=== PATIENT | male | born 1980 | race Caucasian/White ===

== ENCOUNTER → 2020-09-28 13:38 | Outpatient (CLI) | payer OTHER, SELFPAY ==
--- NOTE | ~2020-09-28 | XR_ITS ---
[id number] DATE: 09/28/2020 14:02 INDICATION: Chest pain TECHNIQUE: PA chest. 3 views of left ribs. COMPARISON: None FINDINGS: No left rib fracture is detected. Normal heart size. No hilar or mediastinal enlargement. No pulmonary infiltrate or consolidation, p ulmonary vascular congestion or pleural effusion or pneumothorax. IMPRESSION: Negative Reviewed, dictated and finalized at Location A. 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
--- NOTE | ~2020-09-28 | XR_ITS ---
XR thoracic spine 3V DATE: 09/28/2020 14:02 INDICATION: Back pain, radiculopathy. TECHNIQUE: AP, lateral, swimmer views COMPARISON: None FINDINGS: Minimal levoscoliosis. No fracture or dislocation or bone destruction. The thoracic pedicle s are intact. No paraspinal soft tissue thickening. 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
== END ==
PROVIDERS: PCP Physician Assistant; Visit Provider Physician Assistant
DX: M54.14 Radiculopathy, thoracic region (principal)
CPT/HCPCS: 71101; 72072

== ENCOUNTER 2024-04-28 14:58 | Emergency (ER) | payer OTHER, SELFPAY ==
--- NOTE | ~2024-04-28 | XR_ITS ---
EXAMINATION: XR finger 5th RT min 2V DATE: 04/28/2024 15:39 INDICATION: Possible large wood splinter in the mid right fifth finger TECHNIQUE: Dorsal palmar, lateral and 2 oblique views of the right fifth digit were obtained COMPARISON: None FINDINGS: Bone alignment is normal. No fracture. Joint spaces are normal. No soft tissue gas or radiopaque or r adiolucent foreign bodies identified. IMPRESSION: 1. No osseous abnormality or radiopaque/radiolucent foreign bodies. Of note there is limited sensitiv ity on plain radiographs for organic material of similar density to the soft tissues. Reviewed, dictated and finalized at location A. IMPRESSION: 1. No osseous abnormality or radiopaque/radiolucent foreign bodies. Of note the re is limited sensitivity on plain radiographs for organic material of similar density to the soft tissues.
[2024-04-28 15:20] VITALS: BP 152/82; PULSE 86; RESP 16; TEMP 37.1; O2SAT 99
--- NOTE | 2024-04-28 16:14 | ED.GENADULT ---
HPI - General Adult General Chief complaint: Wound/Laceration Stated complaint: finger injury Source: patient Mode of arrival: ambulatory Limitations: no limitations History of Present Illness HPI narrative: Patient presents for evaluation of suspected foreign body in the 5th digit of the right hand. He indicates he was cutting some brush today and thinks a splinter went into the affected digit. His attempted to make a small incision in an attempt to remove it. That attempt was unsuccessful. He reports mild pain in the affected digit, without numerical rating or descriptive quality. He is left hand dominant. No loss of ROM or paresthesias. He is not diabetic. He does not smoke. Date of last tetanus unknown. Related Data Home Medications Medication Instructions Recorded Confirmed escitalopram oxalate 10 mg tablet 10 mg PO DAILY 04/28/24 04/28/24 valacyclovir 1 gram tablet 1,000 mg PO DAILY 04/28/24 04/28/24 Allergies Allergy/AdvReac Type Severity Reaction Status Date / Time No Known Allergies Allergy Verified 04/28/24 15:18 Review of Systems Review of Systems: CONSTITUTIONAL: Denies fever, chills, or sweats. EYES: Denies visual changes, redness, or discharge. ENT: Denies rhinorrhea, congestion, sore throat, or otalgia. CARDIOVASCULAR: Denies chest pain, palpitations, or edema. RESPIRATORY: Denies cough or dyspnea. GASTROINTESTINAL: Denies abdominal pain, nausea, vomiting, or diarrhea. GENITOURINARY: Denies dysuria or hematuria. SKIN: Reports abrasion to the fifth digit of the right hand with suspected retained foreign body MUSCULOSKELETAL: Reports pain in the 5th digit of the right hand NEUROLOGIC: Denies headache, numbness, dizziness, or weakness. PSYCHIATRIC: Denies anxiety or depression. [facility] Past Medical History Medical History Hyperlipidemia Surgical History Surgical History No pertinent past surgical history Family History Family History Mother Family history non-contributory Social History Social History Smoking status: Never smoker Substance use: never Living arrangements: with family Gender identity (if verbalized by the patient): Male Sexual Orientation (if Verbalized by the Patient): Straight or Heterosexual Spiritual care concerns: No Exam Narrative: GENERAL: Well-appearing, well-nourished, and in no acute distress. HEAD: Normocephalic, atraumatic. EYES: PERRLA and EOMI. ENT: Nares clear, no rhinorrhea or epistaxis. Mucous membranes moist. Oropharynx without tonsillar hypertrophy exudate or other lesions. Bilateral TMs pearly botello nonbulging NECK: Supple. No adenopathy or masses. No carotid bruits or JVD CHEST: Clear to auscultation. No respiratory distress. No wheezes rales or rhonchi HEART: Regular rate and rhythm. No murmur heard. Normal peripheral pulses. ABDOMEN: Soft, nontender, nondistended, normal active bowel sounds. EXTREMITIES: full range of motion of PIP and the IP joints of the 5th digit of the right hand. There is mild tenderness overlying the abrasion to the 5th digit of the right hand. SKIN: Approximately 1.5 cm linear abrasion noted to dorsolateral aspect of fifth digit of right hand NEURO: No focal deficits. Alert and oriented x3. PSYCH: Normal mood and affect. Course Course Emergency Course: This is a 43-year-old male who presented for evaluation of an abrasion to the 5th digit of the right hand with suspected retained foreign body. No radiopaque foreign body visualized on imaging. I do not visualize retained foreign body nor do I palpate. We clean the area and had him soak his digit and warm water. I reassessed it in there was still no visible or palpable retained foreign body. he wa
--- NOTE | 2024-04-28 16:42 | PC.NURSE ---
1630- switched pt to warm soapy water soak at present.
[2024-04-28] MEDS: TETANUS,DIPHTHERIA,AC PERTUSSIS ADULT (0.5 ML) BOOSTRIX IM (17:09)
--- NOTE | 2024-04-28 17:19 | PC.NURSE ---
1605- pt soaking in guaze soaked peroxide.
== END 2024-04-28 17:12 | disposition home or self-care (01) ==
PROVIDERS: Emergency Provider Nurse Practitioner; PCP Physician Assistant
DX: S60.416A Abrasion of right little finger, initial encounter (principal); X58.XXXA Exposure to other specified factors, initial encounter; Z23 Encounter for immunization; E78.5 Hyperlipidemia, unspecified
CPT/HCPCS: 73140; 90471; 90715; 99213; G0463

== ENCOUNTER 2024-12-28 01:11 | Day surgery (SDC) | payer OTHER, SELFPAY ==
[2024-12-13 09:53] VITALS: BMI 28.7
--- OUTSIDE RECORDS SUMMARY | 2024-12-28 01:13 | XMS_ITS ---
Care Plan - [facility] Created on: December 28, 2024 BUFFY GONZALES : 1980 Sex: Male Author Organization [facility] Address [address] [place] [id number] Phone Care Team Providers Care Exchange Teller Name Role Phone Unavailable Unavailable Unavailable
--- OUTSIDE RECORDS SUMMARY | 2024-12-28 01:13 | XMS_ITS | Clinical Summary ---
Author Organization [facility] Address [address] [place] [address] Phone Care Team Providers Care Women'S Apparel Salesperson Name Role Phone Unavailable Unavailable Unavailable Reason for Visit and Chief Complaint LAB Problems Includes: Problems addressed during this encounter and other active Problems All Visits Onset Date Resolved Date Provider Condition S tatus Secondary Insomnia 09/15/2018 SHAWNEE CANDELARIA D.O. Active Last Documented On 8 11:32AM ; [facility] Hypercholesterolemia 05/23/2017 SHAWNEE Waters D.O. Active Last Documented On 8 3:32PM ; [facility] Anxiety Disorder Nos 01/14/2017 SHAWNEE Waters D.O. Active Last Documented On 7 11:06AM ; [facility] Plan of Treatment No Plan of Treatment Recorded Assessments Includes: Assessments from this encounter No Assessments Recorded Medical Equipment - Implanted Devices Includes: Current Devices No Medical Equipment Recorded Medications Includes: Medications discussed during this encounter and other current Medications Current Medications (continue as prescribed) Atorvastatin Calcium 20 MG Oral Tablet 01/31/2020 Provider: SHAWNEE White Diagnosis: Pure hypercholes terolemia, unspecified TAKE 1 TABLET BY MOUTH EVERY NIGHT AT BEDTIME-Needs check up before further refill Last Documented On 01/31/2020 10:43AM By MIKE LOAIZA ; [facility] Mirtazapine 7.5MG Oral Tablet 12/04/2018 Provider: Diagnosis: Wendy Cramer Last Documented On 9 3:33PM By AME LOAIZA ; [facility] Medications Administered Includes: Administered Medications from this encounter No Administered Medications Recorded Results Includes: Results discussed during this encounter No Results Recorded For Specified Dates History of Present Illness Includes: History of Present Illness from this encounter No History of Present Illness Recorded Social History No Social History Recorded - Smoking Status Unknown Medical History Includes: Medical History addressed during this encounter No Medical History Recorded Family History Includes: Family History addressed during this encounter No Family History Recorded Review of Systems Includes: Review of Systems from this encounter No Review of Systems Recorded Mental Status Includes: Mental Status from this encounter No Mental Status Recorded Functional Status Includes: Functional Status from this encounter No Functional Status Recorded Physical Exam Includes: Physical Exam from this encounter No Physical Exam Recorded Allergies Includes: Active Allergies No Known Allergies Encounters Encounter Provider Location Date Check-In Time Check-Out Time Diagnosis LAB SHAWNEE CANDELARIA D.O. 06/02/2019 9:22AM 11:59PM Clinical Notes Includes: Clinical Notes from this encounter No Clinical Notes Recorded
--- OUTSIDE RECORDS SUMMARY | 2024-12-28 01:13 | XMS_ITS | Data Portability ---
Author Organization [facility] [employer], Main Office Address [address] [place] [address] Care Team Providers Care Slip Mixer Name Role Phone LIZZETH CALABRESE Primary Care Provider [phone] LIZZETH CALABRESE Referring Provider EDNA ROJO Gas Tester Unava ilable Assessment No assessment recorded. Plan of Treatment Reminders Order Date Submit Date Provider Last Modified By Organization Details Last Modified Time Details Appointments None record ed. Lab None record ed. Referral None record ed. Procedures None record ed. Surgeries None record ed. Imaging None record ed. Medication Orders None record ed. Patient TargetsNo targets recorded. Patient InstructionsNo instructions recorded. Reason for Referral None Reported. Results Created Date Observation Date Name Description Value Unit Range Abnormal Flag Note LastModifiedBy Organization Detail LastModifiedTime 09/10/20 22 XR, shoul edda, 2 or more view No observ ation record ed. [id number] [id number] [place] [address], [place], [address], 01/08/2023 21:35:29 Result Notes None recorded. 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 Not Available [facility] 3 21:34:41 Pain of left shoulder joint 7624797817556 9109 Active 2021 Not Available [facility] 3 21:34:41 Pain of right shoulder joint 3913143522740 9100 Active 2021 Not Available [facility] 3 21:34:41 Generalize d anxiety disorder 51039748 Active 2021 Not Available [facility] 3 21:34:42 Impingemen t syndrome of left shoulder region 2595292165368 04 Active 2021 Not Available [facility] 3 21:34:42 Lateral epicondyli tis of left humerus 5953300698998 00 Active 2021 Not Available [facility] 3 21:34:42 Anxiety 78036163 Active 2019 Not Available [facility] 3 21:34:42 Hyperlipid emia 20574940 Active 2019 Not Available [facility] 3 21:34:42 Rhinosinus itis 512095173 Active 2021 Not Available [facility] 3 21:34:42 Acute sinusitis 56517172 Active 2022 JOSEPHINE Junior [address] [facility], [facility] [address], [place], [address] , [facility] 3 13:33:44 Problem Notes None recorded. Procedures Surgical History None recorded. Imaging Results Imaging Date Name Status LastModified by Organiz ation Details LastModified Time 09/10/2022 XR, shoulder, 2 or more view completed [id number] [id number] [address], [place], [address], 01/08/2023 21:35:29 Procedure Notes None recorded. Medical Equipment None Reported. Allergies No known drug allergies Medications Name Sig Start Date Stop Date Status Note LastModified by Organization Details LastModified Time atorvastati n 20 mg tablet TAKE 1 TABLET BY MOUTH EVERY NIGHT AT BEDTIME active Not Available Not Available No t Available valacyclovi r 1 gram tablet TAKE 2 TABLETS BY MOUTH EVERY 12 HOURS FOR 1 DAY NEEDED active Not Available Not Available No t Available bupivacaine HCl 0.5 % (5 mg/mL) injection solution Take 2 mg by injection route. 08/07 completed Not Available Not Available Not Available prednisone 20 mg tablet TAKE 2 TABLETS BY MOUTH EVERY DAY FOR 5 DAYS active Not Available Not Available No t Available amoxicillin 875 mg tablet Take 1 tablet every 12 hours by oral route. active Not Available Not Available No t Available Kenalog 10 mg/mL suspension for injection In office injection administe red by the provider 08/06 completed [facility]: [id number] Not Available Not Available Not Available buspirone 10 mg tablet 12/13 completed Not Available Not Available Not Available mirtazapine 15 mg tablet TAKE 1 TABLET BY MOUTH EVERY NIGHT AT BEDTIME active Not Available Not Available No t Available amoxicillin 875 mg-potassiu m clavulanate 125 mg tablet TAKE 1 TABLET BY MOUTH EVERY 12 HOURS active Not Available Not Available No t Available escitalopra m 10 mg tablet TAKE 1 AND 1/2 TABLETS BY MOUTH EVERY DAY active Not Available Not Available No t Available mirtazapine 7.5 mg tablet TK 1 T PO QHS 09/26 completed Not Available Not Available Not Available Fluzone Quad (PF) 60 mcg (15 mcg x 4)/0.5 mL IM syringe active Not Available Not Available N ot Available Vitals Date Recorded Body mass index (BMI) Body mass index (BMI) Body mass index (BMI) Body mass index (BMI) Body height Body height Body height Body height Oxygen saturation Oxygen saturation in Arterial blood by Pulse oximetry Pain severity - 0-10 verbal numeric rating [Score] - Reported Pain severity - 0-10 verbal numeric rating [Score] - Reported Heart rate Respiratory rate Body temperature Body weight Body weight Body weight Body weight Systolic blood pressure Diastolic blood pressure Provider Name and Address Organization Details Last Updated DateTime 3 25.1 kg/m2 26.4 kg/m2 25.8 kg/m2 25.8 kg/m2 177.8 cm 177.8 cm 177.8 cm 177.8 cm 98 % 98 % 2 3 92 /min 16 /min 97.4 [degF] 69118.6 6 g 65318 g 77439.6 3 g 32231.6 3 g 120 mm[Hg] 80 mm[Hg] Not Available [facility] 3 21:34:30 Date Recorded Body height Body temperature Body mass index (BMI) Body weight Respiratory rate Oxygen saturation Oxygen saturation in Arterial blood by Pulse oximetry Heart rate Systolic blood pressure Diastolic blood pressure Provider Name and Address Organization Details Last Updated DateTime 3 177.8 cm 97.6 [degF] 28.1 kg/m2 41555.1 g 16 /min 98 % 98 % 62 /min 122 mm[Hg] 80 mm[Hg] FADIA Tubbs [place] [employer] [facility] 11:22:26 Social History Question Answer Notes LastModified by Organizat ion Details LastModified Time Tobacco Smoking Status Never Smoker FADIA Tubbs null, SARAH [place] [employer] [facility] 02/06/2023 11:17:37 Do You Have An Advance Directive? No [id number] Information not available 01/08/2023 What Is Your Level Of Alcohol Consumption? Moderate [id number] Information not available 01/08/2023 What Is Your Level Of Caffeine Consumption? Moderate [id number] Information not available 01/08/2023 In The 14 Days Before Symptom Onset, Have You Had Close Contact With A Laboratory-confirm ed COVID-19 While That Case Was Ill? No [email or web address] Information n ot available 02/06/2023 In The 14 Days Before Symptom Onset, Have You Had Close Contact With A Person Who Is Under Investigation For COVID-19 While That Person Was Ill? No [email or web address] Information not available 02/06/2023 Are You Currently Employed? Yes [email or web address] Information not available 02/06/2023 What Type Of Diet Are You Following? 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 No [email or web address] Information no t available 02/06/2023 Do You Use Insect Repellent Routinely? No [email or web address] Information not available 02/06/2023 Do You Have A Medical Power Of Access Control Officer? No [email or web address] Information not available 02/06/2023 What Was The Date Of Your Most Recent Tobacco Screening? 12/11/2021 [email or web address] Information not available 02/06/2023 What Is Your Relationship Status? [id number] Information not available 01/08/2023 Do You Use Your Seat Belt Or Car Seat Routinely? Yes [email or web address] Information not available 02/06/2023 Do You Have Smoke And Carbon Monoxide Detectors In Your Home? Yes [email or web address] Information not available 02/06/2023 Do You Use Any Illicit Or Recreational Drugs? No [email or web address] Information not available 02/06/2023 Do You Use Sunscreen Routinely? Yes [email or web address] Information not available 02/06/2023 Have You Recently Traveled Abroad? No [email or web address] Information not available 02/06/2023 Do You Have Any Dietary Restrictions? No [email or web address] Information not available 02/06/2023 Do You Or Have You Ever Used Any Other Forms Of Tobacco Or Nicotine? No [email or web address] Information not available 02/06/2023 Sex: Unknown Functional Status Question Answer Note LastModified by Organizat ion Details LastModified Time What is your exercise level? Moderate [id number] Information not available 01/08/2023 Mental Status None recorded. Family History Relationship Description Onset Age of this Age Resolved Age Notes LastModified by Organization Details LastModified Time Mother Hyperlipidem ia [id number] Not available 01/08/2023 21:34:08 Father Carcinoma of prostate [id number] Not available 01/08/2023 21:34:08 Maternal Grandmother Malignant tumor of pancreas [id number] [id number] Not available 01/08/2023 21:34:08 Maternal Grandfather Malignant neoplastic disease [id number] Not available 01/08/2023 21:34:08 Paternal Grandfather Congestive heart failure [id number] Not available 01/08/2023 21:34:08 Medical History Condition Response ANXIETY DISORDER Y HIGH CHOLESTEROL / HYPERLIPIDEMIA Y Immunizations Vaccine Type Date Status Note Provider Nam e and Address Organization Details Recorded Time Influenza, split virus, quadrivalent, preservative 9 completed Not Available [facility] 01/08/2023 21:35:22 Influenza, split virus, quadrivalent, PF 1 completed Not Available [facility] 01/08/2023 21:35:22 Past Encounters Encounter ID Performer Location Encounter Start Date Encounter Closed Date Diagnosis/Indication Diagnosis SNOMED-CT Code Diagnosis ICD10 Code Diagnosis Note [id number] [facility] [place] [address] [place] [address] 09/27/2021 00:00:00 10/09/2021 22:59:16 [id number] [facility] [address] [place] [address] 12/11/2021 00:00:00 12/11/2021 11:50:15 [id number] [facility] [address] [place] [address] 01/22/2022 00:00:00 01/22/2022 10:46:35 [id number] [facility] [address] [place] [address] 03/26/2022 00:00:00 03/26/2022 10:44:16 [id number] [facility] [address] [place] [address] 06/25/2022 00:00:00 06/25/2022 10:34:13 [id number] [facility] [address] [place] [address] 08/07/2022 00:00:00 08/07/2022 14:13:04 [id number] [facility] [address] [place] [address] 09/10/2022 00:00:00 09/10/2022 10:45:25 [id number] [facility] [address] [place] [address] 10/22/2022 00:00:00 10/22/2022 11:34:16 [id number] JOSEPHINE Junior [facility] [address] [place] [address] 02/06/2023 11:17:30 02/06/2023 11:46:09 Adult health examination 281395523 Z00.01 well exam completed. labs reviewed. very stable. Hyperlipidemia 09494173 E78.5 stable on low dose statin therapy . may f/u annually Generalize d anxiety disorder 54163958 F41.1 stable on lexapro 15mg daily. Long-term drug therapy 793746416 Z79.899 Health Concerns Section Related Observation LastModified by Organization Detai ls LastModified Time None Recorded Concern Status LastModified by Organization Details LastModified Time None Recorded Advance Directives Directive N: Payers Encounter Date Sequence Insurance Name Policy Number Policy Au Covered Member ID Au Member ID Guarantor Name 02/06/2023 1 [facility] [id number] Octavio Fulton [id number] Sabas Fulton Notes Date Note Type Note Provider Name and Address Organization Details Recorded Time 08/07/20 22 text/htm l Allergy/sinusitisReported bypatient.Onset/Timing:gradual onset; progressively worse over last 2months Location:post nasal drainage. clearing throat of mucous Severity:no pain Alleviating factors:pt has not tried anything Associated Symptoms:post nasal dripAnxiety/DepressionReported bypatient.Quality:symptoms improved Severity:denies suicidal ideations; able to maintain relationships; does not interfere with activities of daily living Duration:stablizing Onset/Timing:still present Context:no major life stressors Modifying Factors:medications as directed Associated Symptoms:denies homicidal ideations; no significant weight gain; no significant weight loss; no visual/auditory hallucinations; no delusions; no shortness of breath; mood good; no anxiety; no crying spells; no panic; no isolation; sleeping well; appetite good; energy good; no apathy; maintaining functionalityGeneric HPI TemplateReported bypatient.Location:Lt shoulder Quality:ache Severity:2/10 Duration:comes and goes Onset/Timing:years ago but getting worse in the last couple years. Context:thinks he hurt it lifting weights in his 20's. Aggravating factors:lifting arm above shoulder level Alleviating factors:havent tried anything for the pain.Notes:He seen Dr. Robison for his elbow and if he needs to see someone he did like them.HyperlipidemiaReported bypatient.Duration:chronic Control:usually well controlled Current Therapy:currently taking: (atorvastatin 20mg) Compliance:compliant; compliant with diet;does not exercise(but active) Complications:no coronary artery disease; no peripheral artery disease; no cardiovascular disease Not Available [facility] [employer] [facility] [employer] 08/07/2022 14:13:04 02/07/20 23 text/htm l Anxiety/DepressionReported bypatient.Quality:doesnt matter time of day. Severity:denies suicidal ideations; able to maintain relationships; does not interfere with activities of daily living Duration:symptoms lasting over 2 weeks Onset/Timing:still present Context:no major life stressors Modifying Factors:rx meds Associated Symptoms:denies homicidal ideations; no significant weight gain; no significant weight loss; no visual/auditory hallucinations; no delusions; no shortness of breathHyperlipidemiaReported bypatient.Duration:chronic Control:usually well controlled Current Therapy:currently taking: (atorvastatin 20mg) Compliance:compliant; compliant with diet; exercises;does not exercise Complications:no coronary artery disease; no peripheral artery disease; no cardiovascular disease Wellness JOSEPHINE Junior [address] [place] [address], [place] [address], [place], [address], [facility] 02/06/2023 11:45:06
--- OUTSIDE RECORDS SUMMARY | 2024-12-28 01:13 | XMS_ITS | Clinical Summary ---
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 HIS BUSPIRONE WAS DECREASED - The Chief Complaint is: Pt is here for a 3 month check up, discuss lab work, states there are no concerns today, says his Buspirone was decreased, Problems Includes: Problems addressed during this encounter and other active Problems Current Visit Onset Date Resolved Date Provider Conditio n Status Hypercholesterolemia 05/23/2017 SHAWNEE Waters D.O. Active Last Documented On 8 3:32PM ; [facility] Anxiety Disorder Nos 01/14/2017 SHAWNEE Waters D.O. Active Last Documented On 7 11:06AM ; [facility] Past Visits Onset Date Resolved Date Provider Condition Status Secondary Insomnia 09/15/2018 SHAWNEE CANDELARIA D.O. Active Last Documented On 8 11:32AM ; [facility] Plan of Treatment - Return to the clinic if condition worsens or new symptoms arise - Last Documented On 12/18/2018 7:42AM ; [facility] - Follow-up visit WILL GET LAB DONE TODAY, CAN CALL ON FRIDAY FOR RESULTS THEN DECIDE ON A PLAN. F/U IN 6 MONTHS - Last Documented On 12/18/2018 7:42AM ; [facility] - Patient to call if problem develops - Last Documented On 12/18/2018 7:42AM ; [facility] Instructions to patient Go to the emergency room if condition worsens Last Documented On 9 3:42PM ; [facility] Watch for signs/symptoms of infection Last Documented On 9 3:42PM ; [facility] Education and Decision Aids were provided during visit for: Education and counseling Last Documented On 9 3:40PM ; [facility] Assessments Includes: Assessments from this encounter Findings - [E78.00 - Pure hypercholesterolemia, unspecified] Hypercholesterolemia -LIVER ENZYMES SLIGHTLY ELEVATED ON LAB - Last Documented On 12/18/2018 7:42AM ; [facility] - [F41.9 - Anxiety disorder, unspecified] Anxiety disorder NOS -IS BETTER CONTROLLED - Last Documented On 12/18/2018 7:42AM ; [facility] Instructions Includes: Instructions from this encounter Instructions to patient Go to the emergency room if condition worsens Last Documented On 9 3:42PM ; [facility] Watch for signs/symptoms of infection Last Documented On 9 3:42PM ; [facility] Education and Decision Aids were provided during visit for: Education and counseling Last Documented On 9 3:40PM ; [facility] Medical Equipment - Implanted Devices Includes: Current Devices No Medical Equipment Recorded Medications Includes: Medications discussed during this encounter and other current Medications Discontinued / Stopped on this date SHAWNEE CANDELARIA D.O. on 09/15/2018 Ambien 10MG Oral Tablet Provider: KAYLEIGH CANDELARIA D.O. Diagnosis: Other insomnia Last Documented On 9 3:33PM By AME LOAIZA ; [facility] BusPIRone HCl 10MG Oral Tablet Provider: SHAWNEE CANDELARIA D.O. Diagnosis: Last Documented On 12/04/2018 3:43PM By MIKE LOAIZA ; [facility] Current Medications (continue as prescribed) Atorvastatin Calcium 20 MG Oral Tablet 01/31/2020 Provider: SHAWNEE White Diagnosis: Pure hypercholes terolemia, unspecified TAKE 1 TABLET BY MOUTH EVERY NIGHT AT BEDTIME-Needs check up before further refill Last Documented On 01/31/2020 10:43AM By MIKE LOAIZA ; [facility] Mirtazapine 7.5MG Oral Tablet 12/04/2018 Provider: Diagnosis: Wendy Cramer Last Documented On 9 3:33PM By AME LOAIZA ; [facility] Medications Administered Includes: Administered Medications from this encounter No Administered Medications Recorded Vital Signs Includes: Vital Signs from this encounter Vital Name 12/04/2018 03:25P Blood Pressure Sitting L 124/68 BP Cuff Size Regular Pulse Rate-Sitting (bpm) 76 Respiration Rate (breaths/min) 18 Temp-Oral (F) 97.3 Height (in) 70 Weight (lb) 159 Body Mass Index (kg/m2) 22.8 Body Surface Area (m2) 1.9 Last Documented: On 12/04/2018 3:35PM ; [facility] Results Includes: Results discussed during this encounter LIPID PANEL [facility] La boratory Ordered by SHAWNEE CANDELARIA D.O. on 12/16/[address] [place] [address], [place], [address] Collected: 12/01/2018 Report ed: 12/01/2018 11:02 tel: Last Documented On 9 3:28PM ; [facility] Reviewed by SHAWNEE CANDELARIA D.O. on 12/02/2018; All test results are final unless otherwise noted. CHOL/HDLC 2.6 (0.0 - 4.8) None Last Documented On 12/01/2018 3:28PM ; [facility] Note: Responsible Observer: (NOV) CHOLESTEROL 164 mg/dL (0 - 200) None Last Documented On 12/01/2018 3:28PM ; [facility] Note: Responsible Observer: (NOV) HDL 63 mg/dL (29 - 67) None Last Documented On 12/01/2018 3:28PM ; [facility] Note: Responsible Observer: (NOV) LDL 93 mg/dL (0 - 130) None Last Documented On 12/01/2018 3:28PM ; [facility] Note: Coronary Artery Risk Panel Reference Values Based on the recommendations of the Heart, Lung and Blood [place] (in mg/dL) Risk Levels = High Borderline Desirable Cholesterol >240 200 - 240 <200 LDL >160 130 - 159 <130 Cholesterol/HDL Ratio Male <= 4.88 Female <= 4.23Responsible Observer: (NOV) LIPID PANEL See Note None Last Documented On 12/01/2018 3:28PM ; [facility] Note: LIPID PANELResponsible Observer: (NOV) TRIGLYCERIDE 39 mg/dL (1 - 150) None Last Documented On 12/01/2018 3:28PM ; [facility] Note: Responsible Observer: (NOV) HEPATIC FUNCTION PANEL [facility] Laboratory Ordered by SHAWNEE CANDELARIA D.O. on 12/16/[address] [place] [address], [place], [address] Collected: 12/01/2018 Report ed: 12/01/2018 11:02 tel: Last Documented On 9 3:28PM ; [facility] Reviewed by SHAWNEE CANDELARIA D.O. on 12/02/2018; All test results are final unless otherwise noted. A/G RATIO 1.7 (1.1 - 2.2) None Last Documented On 9 3:28PM ; [facility] Note: Responsible Observer: (NOV) ALBUMIN 4.7 g/dL (3.5 - 5.0) None Last Documented On 9 3:28PM ; [facility] Note: Responsible Observer: (NOV) ALK PHOS 49 IU/L (40 - 150) None Last Documented On 9 3:28PM ; [facility] Note: Responsible Observer: (NOV) ALT (SGPT) 44 IU/L (1 - 55) None Last Documented On 9 3:28PM ; [facility] Note: Responsible Observer: (NOV) AST (SGOT) 38 IU/L (5 - 34) H (High) Last Documented On 9 3:28PM ; [facility] Note: Responsible Observer: (NOV) BILI DIRECT 0.3 mg/dl (0.0 - 0.4) None Last Documented On 9 3:28PM ; [facility] Note: Responsible Observer: (NOV) BILI INDIRECT 0.4 mg/dl (0.0 - 1.1) None Last Documented On 9 3:28PM ; [facility] Note: Responsible Observer: (NOV) BILIRUBIN TOT 0.7 mg/dL (0.2 - 1.0) None Last Documented On 9 3:28PM ; [facility] Note: Responsible Observer: (NOV) GLOBULIN 2.7 g/dl (2.0 - 4.2) None Last Documented On 9 3:28PM ; [facility] Note: Responsible Observer: (NOV) HEPATIC FUNCTION PANEL See Note None Last Documented On 9 3:28PM ; [facility] Note: HEPATIC FUNCTION PANEL A (LIVER PROFILE)Responsible Observer: (NOV) TOTAL PROTEIN 7.4 g/dL (6.4 - 8.3) None Last Documented On 9 3:28PM ; [facility] Note: Responsible Observer: (NOV) History of Present Illness Includes: History of Present Illness from this encounter HPI BUFFY GONZALES is a 37 year old male. Anxiety. - Medication list reviewed. - No systemic symptoms. - No cardiovascular symptoms. - No pulmonary symptoms. Social History Description Last Updated Smoking status : Never smoker 03/08/2015 Last Documented On 9 3:25PM ; [facility] Abnormal diet HEALTHY 01/18/2013 Last Documented On 9 3:25PM ; [facility] Alcohol 6 BEERS PER WEEK 01/18/2013 Last Documented On 9 3:25PM ; [facility] Exercise frequency 4 TIMES PER WEEK 01/08 Last Documented On 9 3:25PM ; [facility] No tobacco use 01/18/2013 Last Documented On 9 3:25PM ; [facility] Non-smoker 01/18/2013 Last Documented On 9 3:25PM ; [facility] Not using drugs 01/18/2013 Last Documented On 9 3:25PM ; [facility] Occupation [employer] 01/18/2013 Last Documented On 9 3:25PM ; [facility] Single 01/18/2013 Last Documented On 9 3:25PM ; [facility] Procedures and Surgical History Includes: Procedures from this encounter Procedures Code Diagnosis Performing Provider Service L ocation Service Date watch for signs/symptoms of infection Last Documented On 9 3:42PM ; [facility] plan of care reviewed and agreed to Last Documented On 9 3:42PM ; [facility] Clinical summary provided to patient Last Documented On 9 3:40PM ; [facility] Medical History Includes: Medical History addressed during this encounter Description Last Updated History of hyperlipidemia 06/06/2018 Last Documented On 9 3:25PM ; [facility] Past medical/surgical history [use for f ree text] 06/06/2018 Last Documented On 9 3:25PM ; [facility] Family History Includes: Family History addressed during this encounter Description Last Updated Family history reviewed - [facility] last visit 12/06/2016 Last Documented On 9 3:25PM ; [facility] Maternal history of hyperlipidemia 06/05 Last Documented On 9 3:25PM ; [facility] Paternal history of cancer 06/05/2016 Last Documented On 9 3:25PM ; [facility] Maternal grandfather's history of jerez ry artery disease IN 40'S OR 50'S 03/08/2015 Last Documented On 9 3:25PM ; [facility] Maternal grandfather is LUNG CA NCER- ASBESTOS 04/27/2009 Last Documented On 9 3:25PM ; [facility] Maternal grandmother is PANCREA TIC AND COLON CANCER 04/27/2009 Last Documented On 9 3:25PM ; [facility] Mother LOW BLOOD PRESSURE 04/27/2009 Last Documented On 9 3:25PM ; [facility] Paternal grandmother is TERMINA L BRONCHITIS 04/27/2009 Last Documented On 9 3:25PM ; [facility] Paternal grandfather is not HEA RT FAILURE 04/27/2009 Last Documented On 9 3:25PM ; [facility] Review of Systems Includes: Review of Systems from this encounter Systemic: Not feeling poorly (malaise). No edema. Head: No headache. Cardiovascular: No chest pain or discomfort. Pulmonary: No dyspnea and not expressed as feeling short of breath. Neurological: No dizziness. Psychological: Anxiety. Mental Status Includes: Mental Status from this encounter Description Anxiety Functional Status Includes: Functional Status from this encounter No Functional Status Recorded Physical Exam Includes: Physical Exam from this encounter Allergies Includes: Active Allergies No Known Allergies Encounters Encounter Provider Location Date Check-In Time Check-Out Time Diagnosis 3 MONTH CHECK SHAWNEE CANDELARIA D.O[facility] 12/04/19 19 3:22PM 3:53PM Anxiety Disorder Nos,Hypercho lesterolemia Clinical Notes Includes: Clinical Notes from this encounter No Clinical Notes Recorded
--- OUTSIDE RECORDS SUMMARY | 2024-12-28 01:14 | XMS_ITS ---
Author Organization [facility] Address [address] [place] [address] Phone Care Team Providers Care Planer Feeder Name Role Phone Unavailable Unavailable Unavailable Problems Includes: Active, inactive, and resolved Problems All Visits Onset Date Resolved Date Provider Condition S tatus Secondary Insomnia 09/15/2018 SHAWNEE Carolina HDZCER D.O. Active Last Documented On 8 11:32AM ; [facility] Hypercholesterolemia 05/23/2017 SHAWNEE Carolina HDZCE R D.O. Active Last Documented On 8 3:32PM ; [facility] Anxiety Disorder Nos 01/14/2017 SHAWNEE Carolina CRANCE R D.O. Active Last Documented On 7 11:06AM ; [facility] Plan of Treatment Findings Encounter Date Will give diet for irritable bowel PROBL EM VISIT with SHAWNEE A CRANCER D.O. 08/11/2019 Last Documented On 9 9:24AM ; [facility] Ordered patient to call if p roblem develops PROBLEM VISIT with SHAWNEE A CRANCER D.O. 08/11/2019 Last Documented On 9 9:24AM ; [facility] Ordered return to the clinic if condition worsens or new symptoms arise PROBLEM VISIT with SHAWNEE A CRANCER D.O. 08/11/2019 Last Documented On 9 9:24AM ; [facility] Ordered patient to call if p roblem develops 6 MONTH CHECK with SHAWNEE A CRANCER D.O. 06/08/2019 Last Documented On 9 12:40PM ; [facility] Ordered return to the clinic if condition worsens or new symptoms arise 6 MONTH CHECK with SHAWNEE A CRANCER D.O. 06/08/2019 Last Documented On 9 12:40PM ; [facility] Ordered follow-up visit WILL GET LAB DONE TODAY, CAN CALL ON FRIDAY FOR RESULTS THEN DECIDE ON A PLAN. F/U IN 6 MONTHS 3 MONTH CHECK with SHAWNEE A CRANCER D.O. 12/04/2018 Last Documented On 9 7:42AM ; [facility] Ordered patient to call if p gunjanlem develops 3 MONTH CHECK with SHAWNEE A CRANCER D.O. 12/04/2018 Last Documented On 9 7:42AM ; [facility] Ordered return to the clinic if condition worsens or new symptoms arise 3 MONTH CHECK with SHAWNEE A CRANCER D.O. 12/04/2018 Last Documented On 9 7:42AM ; [facility] Patient is to keep appt with the Psychiatrist but to try to find a counselor in the meantime MED CHECK with SHAWNEE A CRANCER D.O. 09/15/2018 Last Documented On 8 11:09AM ; [facility] Ordered follow-up visit will get lab today and f/u appt in 1 week MED CHECK with SHAWNEE A CRANCER D.O. 09/15/2018 Last Documented On 8 11:09AM ; [facility] Ordered patient to call if p dustinm develops MED CHECK with SHAWNEE A CRANCER D.O. 09/15/2018 Last Documented On 8 11:09AM ; [facility] Ordered return to the clinic if condition worsens or new symptoms arise MED CHECK with SHAWNEE A CRANCER D.O. 09/15/2018 Last Documented On 8 11:09AM ; [facility] Ordered follow-up visit 3 weeks MED CHECK with L BRANDON A CRANCER D.O. 09/11/2018 Last Documented On 8 9:13AM ; [facility] Ordered patient to call if p gunjanlem develops MED CHECK with SHAWNEE A CRANCER D.O. 09/11/2018 Last Documented On 8 9:13AM ; [facility] Ordered return to the clinic if condition worsens or new symptoms arise MED CHECK with SHAWNEE A CRANCER D.O. 09/11/2018 Last Documented On 8 9:13AM ; [facility] Ordered follow-up visit 6 mo nths with fasting lab before 6 MONTH CHECK with SHAWNEE A CRANCER D.O. 06/03/2018 Last Documented On 8 9:44PM ; [facility] Ordered patient to call if p roblem develops 6 MONTH CHECK with SHAWNEE A CRANCER D.O. 06/03/2018 Last Documented On 8 9:44PM ; [facility] Ordered return to the clinic if condition worsens or new symptoms arise 6 MONTH CHECK with SHAWNEE A CRANCER D.O. 06/03/2018 Last Documented On 8 9:44PM ; [facility] Ordered follow-up visit 6 mo nths with fasting lab before 6 MONTH CHECK with SHAWNEE A CRANCER D.O. 11/26/2017 Last Documented On 8 5:58PM ; [facility] Ordered patient to call if p roblem develops 6 MONTH CHECK with SHAWNEE A CRANCER D.O. 11/26/2017 Last Documented On 8 5:58PM ; [facility] Ordered return to the clinic if condition worsens or new symptoms arise 6 MONTH CHECK with SHAWNEE A CRANCER D.O. 11/26/2017 Last Documented On 8 5:58PM ; [facility] Ordered follow-up visit 6 mo nths with fasting labs before 6 MONTH CHECK with SHAWNEE A CRANCER D.O. 05/23/2017 Last Documented On 7 10:48AM ; [facility] Ordered patient to call if p roblem develops 6 MONTH CHECK with SHAWNEE A CRANCER D.O. 05/23/2017 Last Documented On 7 10:48AM ; [facility] Ordered return to the clinic if condition worsens or new symptoms arise 6 MONTH CHECK with SHAWNEE A CRANCER D.O. 05/23/2017 Last Documented On 7 10:48AM ; [facility] Ordered patient to call if p roblem develops PROBLEM VISIT with SHAWNEE A CRANCER D.O. 04/14/2017 Last Documented On 7 9:39PM ; [facility] Ordered return to the clinic if condition worsens or new symptoms arise PROBLEM VISIT with SHAWNEE A CRANCER D.O. 04/14/2017 Last Documented On 7 9:39PM ; [facility] Is to call back if he feels he cannot tolerate the Buspar 1 MONTH CHECK with SHAWNEE A CRANCER D.O. 02/27/2017 Last Documented On 7 8:39AM ; [facility] Ordered patient to call if p roblem develops 1 MONTH CHECK with SHAWNEE A CRANCER D.O. 02/27/2017 Last Documented On 7 8:39AM ; [facility] Ordered return to the clinic if condition worsens or new symptoms arise 1 MONTH CHECK with SHAWNEE A CRANCER D.O. 02/27/2017 Last Documented On 7 8:39AM ; [facility] Ordered follow-up visit 1 mo [facility] for medication check up 2 WK CK-UP with SHAWNEE A CRANCER D.O. 01/29/2017 Last Documented On 7 6:35PM ; [facility] Ordered patient to call if p roblem develops 2 WK CK-UP with SHAWNEE A CRANCER D.O. 01/29/2017 Last Documented On 7 6:35PM ; [facility] Ordered return to the clinic if condition worsens or new symptoms arise 2 WK CK-UP with SHAWNEE A CRANCER D.O. 01/29/2017 Last Documented On 7 6:35PM ; [facility] Ordered follow-up visit 2 we eks-med check MED CHECK with SHAWNEE A CRANCER D.O. 01/14/2017 Last Documented On 7 9:28AM ; [facility] Ordered patient to call if p roblem develops MED CHECK with SHAWNEE A CRANCER D.O. 01/14/2017 Last Documented On 7 9:28AM ; [facility] Ordered return to the clinic if condition worsens or new symptoms arise MED CHECK with SHAWNEE A CRANCER D.O. 01/14/2017 Last Documented On 7 9:28AM ; [facility] Ordered patient to call if p roblem develops 6 MONTH CHECK with SHAWNEESKAGGSCER D.O. 12/06/2016 Last Documented On 7 4:02PM ; [facility] Ordered return to the clinic if condition worsens or new symptoms arise 6 MONTH CHECK with SHAWNEE A CRANCER D.O. 12/06/2016 Last Documented On 7 4:02PM ; [facility] Ordered follow-up visit 3 MONTH CHECK with HOLLEY CANDELARIA D.O. 03/08/2015 Last Documented On 5 3:14PM ; [facility] Ordered a lipid test panel 3 MONTH CHECK with JEFFREY CANDELARIA D.O. 12/01/2014 Last Documented On 5 2:30PM ; [facility] Ordered follow-up visit FOLL OW UP IN 3 MONTHS WITH FASTING LAB BEFORE 3 MONTH CHECK with SHAWNEE CANDELARIA D.O. 12/01/2014 Last Documented On 5 2:30PM ; [facility] Ordered Clinical summary pro vided to patient 1 MONTH CHECK with SHAWNEE HDZCER D.O. 01/18/2013 Last Documented On 3 11:42AM ; [facility] Ordered Clinical summary pro vided to patient 1 WK CK-UP with SHAWNEESKAGGSCER D.O. 12/21/2012 Last Documented On 3 6:02PM ; [facility] Ordered Clinical summary pro vided to patient PROBLEM VISIT with SHAWNEE A CRANCER D.O. 12/14/2012 Last Documented On 3 6:11PM ; [facility] Instructions to patient Go to the emergency room if condition worsens Last Documented On 9 8:36AM ; [facility] Watch for signs/symptoms of infection Last Documented On 9 8:36AM ; [facility] Go to the emergency room if condition worsens Last Documented On 9 9:06AM ; [facility] Watch for signs/symptoms of infection Last Documented On 9 9:06AM ; [facility] Recommend diet and exercise at least 30 min three times per week Last Documented On 9 9:06AM ; [facility] Go to the emergency room if condition worsens Last Documented On 9 3:42PM ; [facility] Watch for signs/symptoms of infection Last Documented On 9 3:42PM ; [facility] Go to the emergency room if condition worsens Last Documented On 8 11:30AM ; [facility] Watch for signs/symptoms of infection Last Documented On 8 11:30AM ; [facility] Go to the emergency room if condition worsens Last Documented On 8 2:00PM ; [facility] Watch for signs/symptoms of infection Last Documented On 8 2:00PM ; [facility] Recommend diet and exercise at least 30 min three times per week -Can help with stress Last Documented On 8 2:07PM ; [facility] Go to the emergency room if condition worsens Last Documented On 8 3:51PM ; [facility] Watch for signs/symptoms of infection Last Documented On 8 3:51PM ; [facility] Recommend diet and exercise at least 30 min three times per week Last Documented On 8 3:51PM ; [facility] Watch for signs/symptoms of infection Last Documented On 8 3:38PM ; [facility] Recommend diet and exercise at least 30 min three times per week Last Documented On 8 3:37PM ; [facility] Go to the emergency room if condition worsens Last Documented On 7 3:18PM ; [facility] Go to the emergency room if condition worsens Last Documented On 7 3:13PM ; [facility] Go to the emergency room if condition worsens Last Documented On 7 9:28AM ; [facility] Recommend diet and exercise at least 30 min three times per week Last Documented On 7 11:07AM ; [facility] Recommend diet and exercise at least 30 min three times per week Last Documented On 7 3:22PM ; [facility] Recommend diet and exercise at least 30 min three times per week Last Documented On 6 3:26PM ; [facility] Recommend diet and exercise at least 30 min three times per week Last Documented On 5 3:09PM ; [facility] Education and Decision Aids were provided during visit for: Education and counseling Last Documented On 9 8:33AM ; [facility] Education and counseling Last Documented On 9 9:04AM ; [facility] Patient education about a pr oper diet Last Documented On 9 9:06AM ; [facility] Education and counseling Last Documented On 9 3:40PM ; [facility] Education and counseling Last Documented On 8 11:20AM ; [facility] Patient education about a pr oper diet Last Documented On 8 3:51PM ; [facility] Patient education about a pr oper diet -Healthy diet encouraged Last Documented On 8 3:37PM ; [facility] Patient education about a pr oper diet -Healthy diet encouraged Last Documented On 7 11:07AM ; [facility] Patient education about a pr oper diet -Healthy diet is encouraged Last Documented On 7 3:22PM ; [facility] Assessments Includes: Assessments for all patient encounters Findings Encounter Date [R10.12 - Left upper quadran t pain] Abdominal Pain--LUQ -intermittent, no pain today-Will give diet sheet for IBS PROBLEM VISIT with SHAWNEE CANDELARIA D.O. 08/11/2019 Last Documented On 9 9:24AM ; [facility] Anxiety disorder NOS PROBLEM VISIT with SHAWNEE CANDELARIA D.O. 08/11/2019 Last Documented On 9 9:24AM ; [facility] Anxiety disorder NOS 6 MONTH CHECK with SHAWNEENOEL D.O. 06/08/2019 Last Documented On 9 12:40PM ; [facility] Hypercholesterolemia 6 MONTH CHECK with SHAWNEE A ANDREINACER D.O. 06/08/2019 Last Documented On 9 12:40PM ; [facility] [E78.00 - Pure hypercholeste rolemia, unspecified] hypercholesterolemia -LIVER ENZYMES SLIGHTLY ELEVATED ON LAB 3 MONTH CHECK with SHAWNEE CANDELARIA D.O. 12/04/2018 Last Documented On 9 7:42AM ; [facility] [F41.9 - Anxiety disorder, u nspecified] anxiety disorder NOS -IS BETTER CONTROLLED 3 MONTH CHECK with SHAWNEE A CRANCER D.O. 12/04/2018 Last Documented On 9 7:42AM ; [facility] Anxiety disorder NOS MED CHECK with SHAWNEE A CLINICAL RESEARCH ASSOCIATE NCER D.O. 09/15/2018 Last Documented On 8 11:09AM ; [facility] Secondary insomnia MED CHECK with SHAWNEE A CRANC ER D.O. 09/15/2018 Last Documented On 8 11:09AM ; [facility] Anxiety disorder NOS MED CHECK with SHAWNEE A CLINICAL RESEARCH ASSOCIATE NCER D.O. 09/11/2018 Last Documented On 8 9:13AM ; [facility] Anxiety disorder NOS 6 MONTH CHECK with SHAWNEE A CRANCER D.O. 06/03/2018 Last Documented On 8 9:44PM ; [facility] Hypercholesterolemia 6 MONTH CHECK with SHWANEE A CRANCER D.O. 06/03/2018 Last Documented On 8 9:44PM ; [facility] Anxiety disorder NOS 6 MONTH CHECK with SHAWNEE A CRANCER D.O. 11/26/2017 Last Documented On 8 5:58PM ; [facility] Hypercholesterolemia 6 MONTH CHECK with SHWANEE A CRANCER D.O. 11/26/2017 Last Documented On 8 5:58PM ; [facility] Anxiety disorder NOS -stable 6 MONTH CHECK with SHAWNEE A CRANCER D.O. 05/23/2017 Last Documented On 7 10:48AM ; [facility] Pure hypercholesterolemia well controlle d 6 MONTH CHECK with SHAWNEE A CRANCER D.O. 05/23/2017 Last Documented On 7 10:48AM ; [facility] Lymphadenitis PROBLEM VISIT with SHAWNEE A CRAN CER D.O. 04/14/2017 Last Documented On 7 9:39PM ; [facility] Anxiety disorder NOS 1 MONTH CHECK with SHAWNEE A CRANCER D.O. 02/27/2017 Last Documented On 7 8:39AM ; [facility] Pure hypercholesterolemia 1 MONTH CHECK with LES TER A CRANCER D.O. 02/27/2017 Last Documented On 7 8:39AM ; [facility] Anxiety disorder NOS 2 WK CK-UP with SHANWEE A CR ANCER D.O. 01/29/2017 Last Documented On 7 6:35PM ; [facility] Pure hypercholesterolemia 2 WK CK-UP with SHAWNEE A CRANCER D.O. 01/29/2017 Last Documented On 7 6:35PM ; [facility] Anxiety disorder NOS MED CHECK with SHAWNEE A CLINICAL RESEARCH ASSOCIATE NCER D.O. 01/14/2017 Last Documented On 7 9:28AM ; [facility] Pure hypercholesterolemia MED CHECK with SHAWNEE A CRANCER D.O. 01/14/2017 Last Documented On 7 9:28AM ; [facility] Pure hypercholesterolemia 6 MONTH CHECK with LES TER A CRANCER D.O. 12/06/2016 Last Documented On 7 4:02PM ; [facility] Abdominal pain 6 MONTH CHECK with SHAWNEE A CRAN CER D.O. 06/05/2016 Last Documented On 6 4:08PM ; [facility] Normal routine history and physical 6 MO NTH CHECK with SHAWNEE A CRANCER D.O. 06/05/2016 Last Documented On 6 4:08PM ; [facility] Pure hypercholesterolemia 6 MONTH CHECK with LES TER A CRANCER D.O. 06/05/2016 Last Documented On 6 4:08PM ; [facility] Hypercholesterolemia 6 MONTH CHECK with SHAWNEE A CRANCER D.O. 12/06/2015 Last Documented On 6 6:00PM ; [facility] Hypercholesterolemia which i s well-controlled 3 MONTH CHECK with SHAWNEE A CRANCER D.O. 06/07/2015 Last Documented On 5 12:29PM ; [facility] Hypercholesterolemia 3 MONTH CHECK with SHAWNEE A CRANCER D.O. 03/08/2015 Last Documented On 5 3:14PM ; [facility] Normal routine history and physical 3 MO NTH CHECK with SHAWNEE A CRANCER D.O. 12/01/2014 Last Documented On 5 2:30PM ; [facility] Normal routine history and p hysical adult 3 MONTH CHECK with SHAWNEE A CRANCER D.O. 12/01/2014 Last Documented On 5 2:30PM ; [facility] Hypercholesterolemia 1 YR CHECK-UP with SHAWNEE A CRANCER D.O. 09/01/2014 Last Documented On 4 5:29PM ; [facility] MONTH CHECK with SHAWNEE A CRANCER D.O. 01/18/2013 Last Documented On 3 11:42AM ; [facility] Chest pain THIS IS LIKELY CA USED BY THE REFLUX 1 WK CK-UP with SHAWNEE A CRANCER D.O. 12/21/2012 Last Documented On 3 6:02PM ; [facility] Chronic reflux esophagitis 1 WK CK-UP with LESTE R A CRANCER D.O. 12/21/2012 Last Documented On 3 6:02PM ; [facility] Chest pain PROBLEM VISIT with SHAWNEE A CRAN CER D.O. 12/14/2012 Last Documented On 3 6:11PM ; [facility] Chronic reflux esophagitis PROBLEM VISIT with LE STER A CRANCER D.O. 12/14/2012 Last Documented On 3 6:11PM ; [facility] Normal routine history and p hysical THE PT IS TO BE GIVEN A DPT INJECTION SINCE HIS IS INJECTION with SHAWNEE A CRANCER D.O. 08/28/2011 Last Documented On 1 7:43PM ; [facility] Instructions Includes: Instructions for all patient encounters Instructions to patient Go to the emergency room if condition worsens Last Documented On 9 8:36AM ; [facility] Watch for signs/symptoms of infection Last Documented On 9 8:36AM ; [facility] Go to the emergency room if condition worsens Last Documented On 9 9:06AM ; [facility] Watch for signs/symptoms of infection Last Documented On 9 9:06AM ; [facility] Recommend diet and exercise at least 30 min three times per week Last Documented On 9 9:06AM ; [facility] Go to the emergency room if condition worsens Last Documented On 9 3:42PM ; [facility] Watch for signs/symptoms of infection Last Documented On 9 3:42PM ; [facility] Go to the emergency room if condition worsens Last Documented On 8 11:30AM ; [facility] Watch for signs/symptoms of infection Last Documented On 8 11:30AM ; [facility] Go to the emergency room if condition worsens Last Documented On 8 2:00PM ; [facility] Watch for signs/symptoms of infection Last Documented On 8 2:00PM ; [facility] Recommend diet and exercise at least 30 min three times per week -Can help with stress Last Documented On 8 2:07PM ; [facility] Go to the emergency room if condition worsens Last Documented On 8 3:51PM ; [facility] Watch for signs/symptoms of infection Last Documented On 8 3:51PM ; [facility] Recommend diet and exercise at least 30 min three times per week Last Documented On 8 3:51PM ; [facility] Watch for signs/symptoms of infection Last Documented On 8 3:38PM ; [facility] Recommend diet and exercise at least 30 min three times per week Last Documented On 8 3:37PM ; [facility] Go to the emergency room if condition worsens Last Documented On 7 3:18PM ; [facility] Go to the emergency room if condition worsens Last Documented On 7 3:13PM ; [facility] Go to the emergency room if condition worsens Last Documented On 7 9:28AM ; [facility] Recommend diet and exercise at least 30 min three times per week Last Documented On 7 11:07AM ; [facility] Recommend diet and exercise at least 30 min three times per week Last Documented On 7 3:22PM ; [facility] Recommend diet and exercise at least 30 min three times per week Last Documented On 6 3:26PM ; [facility] Recommend diet and exercise at least 30 min three times per week Last Documented On 5 3:09PM ; [facility] Education and Decision Aids were provided during visit for: Education and counseling Last Documented On 9 8:33AM ; [facility] Education and counseling Last Documented On 9 9:04AM ; [facility] Patient education about a pr oper diet Last Documented On 9 9:06AM ; [facility] Education and counseling Last Documented On 9 3:40PM ; [facility] Education and counseling Last Documented On 8 11:20AM ; [facility] Patient education about a pr oper diet Last Documented On 8 3:51PM ; [facility] Patient education about a pr oper diet -Healthy diet encouraged Last Documented On 8 3:37PM ; [facility] Patient education about a pr oper diet -Healthy diet encouraged Last Documented On 7 11:07AM ; [facility] Patient education about a pr oper diet -Healthy diet is encouraged Last Documented On 7 3:22PM ; [facility] Medical Equipment - Implanted Devices Includes: Current and historical Devices No Medical Equipment Recorded Medications Includes: Current and historical Medications Current Medications (continue as prescribed) Atorvastatin Calcium 20 MG Oral Tablet 01/31/2020 Provider: SHAWNEE White Diagnosis: Pure hypercholes terolemia, unspecified TAKE 1 TABLET BY MOUTH EVERY NIGHT AT BEDTIME-Needs check up before further refill Last Documented On 01/31/2020 10:43AM By MIKE LOAIZA ; [facility] Mirtazapine 7.5MG Oral Tablet 12/04/2018 Provider: Diagnosis: Wendy Digby Last Documented On 9 3:33PM By AME LOAIZA ; [facility] Past Medications on file Atorvastatin Calcium 20 MG Oral Tablet 01/03/2020 - 01/31/2020 Provider: SHAWNEE CANDELARIA D.O. Diagnosis: Pure hypercholesterolemia, unspecified TAKE 1 TABLET BY MOUTH EVERY NIGHT AT BEDTIME PATIENT NEEDS APPOINTMENT BEFORE FUTURE REFILLS. Last Documented On 01/31/2020 10:33AM By MIKE LOAIZA ; [facility] Atorvastatin Calcium 20MG Oral Tablet 06/28/2019 - 01/03/2020 Provider: SHAWNEE CANDELARIA D.O. Diagnosis: Pure hypercholesterolemia, unspecified TAKE ONE TABLET BY MOUTH KEITH RY NIGHT AT BEDTIME Last Documented On 01/03/2020 9:24AM By Ara Glover MA ; [facility] BusPIRone HCl 10MG Oral Tablet 12/04/2018 - 06/08/2019 Provider: Diagnosis: 1 PO QD Last Documented On 06/08/2019 8:55AM By rAa Glover MA ; [facility] Ambien 10MG Oral Tablet 09/15/2018 - 12/04/2018 Provid er: SHAWNEE CANDELARIA D.O. Diagnosis: Other insomnia 1 po at hs prn Last Documented On 9 3:33PM By AME LOAIZA ; [facility] CeleXA 20MG Oral Tablet 09/11/2018 - 09/15/2018 Provider: SHAWNEE CANDELARIA D.O. Diagnosis: Anxiety disorder , unspecified 1 po qd at hs (Is to continu e the Buspirone) Last Documented On 8 11:08AM By AME LOAIZA ; [facility] Atorvastatin Calcium 20MG Oral Tablet 06/03/2018 - 06/28/2019 Provider: SHAWNEE CANDELARIA D.O. Diagnosis: Pure hypercholesterolemia, unspecified TAKE 1 TABLET BY MOUTH EVERY NIGHT AT BEDTIME Last Documented On 06/28/2019 9:21AM By Ara Glover MA ; [facility] BusPIRone HCl 10MG Oral Tablet 06/03/2018 - 12/04/2018 Provider: SHAWNEE CANDELARIA D.O. Diagnosis: TAKE 1 TABLET BY MOUTH TWICE DAILY Last Documented On 12/04/2018 3:43PM By MIKE LOAIZA ; [facility] Atorvastatin Calcium 20MG Oral Tablet 12/04/2017 - 06/03/2018 Provider: SHAWNEE CANDELARIA D.O. Diagnosis: Pure hypercholesterolemia, unspecified TAKE 1 TABLET BY MOUTH EVERY NIGHT AT BEDTIME Last Documented On 06/03/2018 3:55PM By MIKE LOAIZA ; [facility] BusPIRone HCl 10MG Oral Tablet 12/04/2017 - 06/03/2018 Provider: SHAWNEE CANDELARIA D.O. Diagnosis: TAKE 1 TABLET BY MOUTH TWICE DAILY Last Documented On 06/03/2018 3:55PM By MIKE LOAIZA ; [facility] Atorvastatin Calcium 20MG Oral Tablet 05/23/2017 - 12/04/2017 Provider: SHAWNEE CANDELARIA D.O. Diagnosis: Pure hypercholes terolemia TAKE 1 TABLET BY MOUTH EVERY NIGHT AT BEDTIME Last Documented On 12/04/2017 8:23AM By MIKE LOAIZA ; [facility] BusPIRone HCl 10MG Oral Tablet 05/23/2017 - 12/04/2017 Provider: SHAWNEE CANDELARIA D.O. Diagnosis: Anxiety disorder , unspecified 1 po BID Last Documented On 12/04/2017 8:21AM By MIKE LOAIZA ; [facility] Keflex 250MG Oral Capsule 04/14/2017 - 05/23/2017 Provider: SHAWNEE CANDELARIA D.O. Diagnosis: Nonspecific lymphadenitis, unspecified 1 po QID x 7 days Last Documented On 7 3:05PM By AME LOAIZA ; [facility] Atorvastatin Calcium 20MG Oral Tablet 03/10/2017 - 05/23/2017 Provider: SHAWNEE CANDELARIA D.O. Diagnosis: Pure hypercholes terolemia TAKE 1 TABLET BY MOUTH EVERY NIGHT AT BEDTIME Last Documented On 05/23/2017 3:31PM By MIKE LOAIZA ; [facility] BusPIRone HCl 10MG Oral Tablet 02/27/2017 - 05/23/2017 Provider: SHAWNEE CANDELARIA D.O. Diagnosis: Anxiety disorder , unspecified 1 po BID Last Documented On 05/23/2017 3:31PM By MIKE LOAIZA ; [facility] BusPIRone HCl 10MG Oral Tablet 01/29/2017 - 02/27/2017 Provider: SHAWNEE CANDELARIA D.O. Diagnosis: 1 po BID-New dose stop the 15 mg BID) Last Documented On 02/27/2017 9:33AM By MIKE LOAIZA ; [facility] BusPIRone HCl 15MG Oral Tablet 01/14/2017 - 01/29/2017 Provider: SHAWNEE CANDELARIA D.O. Diagnosis: Anxiety disorder , unspecified 1/2 tab po BID Last Documented On 01/29/2017 9:41AM By MIKE LOAIZA ; [facility] Atorvastatin Calcium 20MG Oral Tablet 12/06/2016 - 03/10/2017 Provider: SHAWNEE CANDELARIA D.O. Diagnosis: Pure hypercholes terolemia 1 PO QHS Last Documented On 03/10/2017 8:54AM By MIKE LOAIZA ; [facility] Atorvastatin Calcium 20 MG Tablet 06/05/2016 - 12/06/2016 Provider: SHAWNEE CANDELARIA D.O. Diagnosis: Pure hypercholes terolemia 1 PO QHS Last Documented On 12/06/2016 3:26PM By MIKE LOAIZA ; [facility] Atorvastatin Calcium 20 MG Tablet 05/27/2016 - 06/05/2016 Provider: SHAWNEE CANDELARIA D.O. Diagnosis: Pure hypercholes terolemia 1 PO QHS Last Documented On 06/05/2016 3:33PM By MIKE LOAIZA ; [facility] Atorvastatin Calcium 20 MG Tablet 12/06/2015 - 05/27/2016 Provider: SHAWNEE CANDELARIA D.O. Diagnosis: Pure hypercholes terolemia 1 PO QHS Last Documented On 05/27/2016 1:25PM By MIKE LOAIZA ; [facility] Atorvastatin Calcium 20 MG Tablet 09/05/2015 - 12/06/2015 Provider: SHAWNEE CANDELARIA D.O. Diagnosis: 1 PO QHS Last Documented On 12/06/2015 3:58PM By MIKE LOAIZA ; [facility] Atorvastatin Calcium 20 MG Tablet 06/07/2015 - 09/05/2015 Provider: SHAWNEE CANDELARIA D.O. Diagnosis: 1 PO QHS Last Documented On 09/05/2015 8:47AM By XAVI LOAIZA ; [facility] Atorvastatin Calcium 20 MG Tablet 03/08/2015 - 06/07/2015 Provider: SHAWNEE CANDELARIA D.O. Diagnosis: 1 PO QHS Last Documented On 06/07/2015 4:46PM By SHAWNEE CANDELARIA DO ; [facility] Omeprazole 20 MG OR CPDR 01/18/2013 - 09/01/2014 Provider: SHAWNEE CANDELARIA D.O. Diagnosis: REFLUX ESOPHAGIT IS Last Documented On 09/01/2014 2:55PM By GARY LOAIZA ; [facility] Omeprazole 20 MG OR CPDR 12/21/2012 - 09/01/2014 Provider: SHAWNEE A CRANCER D.O. Diagnosis: REFLUX ESOPHAGIT IS Last Documented On 09/01/2014 2:55PM By GARY LOAIZA ; [facility] PriLOSEC 10 MG OR CPDR 12/14/2012 - 01/18/2013 Provide r: SHAWNEE Figueroa CRANCER D.O. Diagnosis: Last Documented On 01/18/2013 2:04PM By XAVI LOAIZA ; [facility] Levaquin 500 MG OR TABS 12/29/2008 - 12/14/2012 Provid er: Diagnosis: Last Documented On 12/14/2012 2:35PM By XAVI LOAIZA ; [facility] Medications Administered Includes: Administered Medications in patient's chart No Administered Medications Recorded Results Includes: Results from 12/28/2023 through 12/28/2024 No Results Recorded For Specified Dates History of Present Illness History of Present Illness not supported for this document type No History of Present Illness Recorded Social History Description Last Updated Smoking status : Never smoker 03/08/2015 Last Documented On 5 3:14PM ; [facility] Abnormal diet HEALTHY 01/18/2013 Last Documented On 3 11:42AM ; [facility] Alcohol 6 BEERS PER WEEK 01/18/2013 Last Documented On 3 11:42AM ; [facility] Exercise frequency 4 TIMES PER WEEK 01/08 Last Documented On 3 11:42AM ; [facility] No tobacco use 01/18/2013 Last Documented On 3 11:42AM ; [facility] Non-smoker 01/18/2013 Last Documented On 3 11:42AM ; [facility] Not using drugs 01/18/2013 Last Documented On 3 11:42AM ; [facility] Occupation [employer] 01/18/2013 Last Documented On 3 11:42AM ; [facility] Single 01/18/2013 Last Documented On 3 11:42AM ; [facility] Medical History Includes: Medical History in patient's chart Description Last Updated History of hyperlipidemia 06/06/2018 Last Documented On 8 9:44PM ; [facility] Past medical/surgical history [use for f ree text] 06/06/2018 Last Documented On 8 9:44PM ; [facility] Family History Includes: Family History in patient's chart Description Last Updated Family history reviewed - unchanged sin e last visit 12/06/2016 Last Documented On 7 4:02PM ; [facility] Maternal history of hyperlipidemia 06/05 Last Documented On 6 4:08PM ; [facility] Paternal history of cancer 06/05/2016 Last Documented On 6 4:08PM ; [facility] Maternal grandfather's history of jerez ry artery disease IN 40'S OR 50'S 03/08/2015 Last Documented On 5 3:14PM ; [facility] Maternal grandfather is LUNG CA NCER- ASBESTOS 04/27/2009 Last Documented On 9 11:00AM ; [facility] Maternal grandmother is PANCREA TIC AND COLON CANCER 04/27/2009 Last Documented On 9 11:00AM ; [facility] Mother LOW BLOOD PRESSURE 04/27/2009 Last Documented On 9 11:00AM ; [facility] Paternal grandmother is TERMINA L BRONCHITIS 04/27/2009 Last Documented On 9 11:00AM ; [facility] Paternal grandfather is not HEA RT FAILURE 04/27/2009 Last Documented On 9 11:00AM ; [facility] Review of Systems Review of Systems not supported for this document type No Review of Systems Recorded Mental Status No Mental Status Recorded Functional Status No Functional Status Recorded Physical Exam Physical Exam not supported for this document type No Physical Exam Recorded Immunizations Includes: Immunizations in patient's chart Vaccine Dose # Date Site Reaction(s) Status Source DTaP 1 08/28/2011 Right Arm Complete (Administered) [facility] Last Documented On 1 4:31PM ; [facility] DTaP 2 08/28/2011 Active (Ordered) [facility] Last Documented On 1 7:40PM ; [facility] Influenza (Quadrivalent)36 m o.& older PF 0.5ml (SD) 1 08/10/2014 Complete (Reported) Patie nt Last Documented On 4 11:47AM ; [facility] Influenza (Quadrivalent)36 mo.& older PF 0.5ml (SD) 2 08/14/2016 Right Arm Complete (Reported) Patient Last Documented On 08/14/2016 5:19PM ; [facility] Note: Fluzone Quad SYR 2015- Influenza (Quadrivalent)36 mo.& older PF 0.5ml (SD) 3 08/13/2017 Left Arm Complete (Reported) Patient Last Documented On 7 11:45AM ; [facility] Influenza (Quadrivalent)36 mo.& older PF 0.5ml (SD) 4 08/20/2018 Right Arm Complete (Reported) Patient Last Documented On 08/21/2018 8:48AM ; [facility] Note: [place] Allergies Includes: Active, inactive, and resolved Allergies No Known Allergies Clinical Notes Includes: Signed Clinical Notes starting from 11/29/2022 No Clinical Notes Recorded
--- OUTSIDE RECORDS SUMMARY | 2024-12-28 01:15 | XMS_ITS | Data Portability ---
Author Organization [facility] Address [address] [place] [address] Care Team Providers Care Director Auto Name Role Phone BREANA CALABRESE Primary Care Provider Unavailab le Assessment No assessment recorded. Plan of Treatment Reminders Order Date Submit Date Provider Last Modified By Organization Details Last Modified Time Details Appointments ANY 15 2024 08:00A M JOSEPHINE Junior Not available Not available Not available Lab PSA, total, serum or plasma 2023 024 [place] [facility], [address], [place], [address], 05/28/2024 03:36:44 testost erone, free + total, serum 2023 024 [facility], [address], [place], [address], 05/28/2024 03:36:41 CBC w/ auto diff 2023 024 [facility], [address], [place], [address], 05/28/2024 03:36:43 CMP, serum or plasma 2023 024 [place] [facility], [address], [place], [address], 05/28/2024 03:36:42 TSH + free T4, serum 2023 024 [place] [facility], [address], [place], [address], 05/28/2024 03:36:41 HbA1c (hemogl obin A1c), blood 2023 024 [place] [facility], [address], [place], [address], 05/28/2024 03:36:43 lipid panel, serum 2023 024 [place] [facility], [address], [place], [address], 05/28/2024 03:36:[address] referra l 2023 024 [facility] ([facility]), [address] [place] [address] , [address], [place], [address], 08/03/2024 13:31:15 Procedures home sleep testing (PROC) 2023 024 [facility], [address], [place], [address], 09/01/2024 14:12:13 colonos copy screeni ng (PROC) 2023 024 [facility], [address], [address], [place], [address], 12/24/2024 14:39:54 Surgeries None recorde d. Imaging None recorde d. Medication Orders escital opram 10 mg tablet 2023 024 [place] [facility], [address] [place] [address], [address], [place], [id number], 06/21/2024 13:00:52 mirtaza pine 7.5 mg tablet 2023 024 [place] [facility], [address], [address], [place], [place], [id number], 06/21/2024 13:00:52 Patient TargetsNo targets recorded. Patient InstructionsNo instructions recorded. 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 Belkis atkinson et.al . JCEM 2017, 102;1 161-1 173. PMID: 99260 103. Not Available [facility] ([facility]) [address] [place], [address], 05/28/2024 03:36:41 05/25/20 24 05/28/2024 TESTO STERO NE,FR EE AND TOTAL free testosterone (direct) 16.5 pg/mL 6.8-21 .5 Not Available [facility] ([facility]) [address] [place], [address], 05/28/2024 03:36:41 05/25/20 24 05/26/2024 TSH+F REE T4 TSH 2.000 uIU/m L 0.450- 4.500 Not Available [facility] ([facility]) [address] [place], [address], 05/28/2024 03:36:41 05/25/20 24 05/26/2024 TSH+F REE T4 T4,free(dire ct) 1.04 NG/dL 0.82-1 .77 Not Available [facility] ([facility]) [address] [place], [address], 05/28/2024 03:36:41 05/25/20 24 05/26/2024 LIPID PANEL cholesterol, total 201 mg/dL 100-19 9 above high normal Not Available [facility] ([facility]) [address] [place], [address], 05/28/2024 03:36:42 05/25/20 24 05/26/2024 LIPID PANEL triglyceride s 116 mg/dL 0-149 Not Available [facility] ([facility]) [address] [place], [address], 05/28/2024 03:36:42 05/25/20 24 05/26/2024 LIPID PANEL HDL cholesterol 59 mg/dL >39 Not Available [facility] ([facility]) [address] [place], [address], 05/28/2024 03:36:42 05/25/20 24 05/26/2024 LIPID PANEL VLDL cholesterol nana 21 mg/dL 5-40 Not Available [facility] ([facility]) [address] [place], [address], 05/28/2024 03:36:42 05/25/20 24 05/26/2024 LIPID PANEL LDL chol calc ([facility]) 121 mg/dL 0-99 above high normal Not Available [facility] ([facility]) [address] [place], [address], 05/28/2024 03:36:42 05/25/20 24 05/26/2024 COMP. METAB OLIC PANEL (14) glucose 95 mg/dL 70-99 Not Available [facility] ([facility]) [address] [place], [address], 05/28/2024 03:36:42 05/25/20 24 05/26/2024 COMP. METAB OLIC PANEL (14) BUN 17 mg/dL 6-24 Not Available [facility] ([facility]) [address] [place], [address], 05/28/2024 03:36:42 05/25/20 24 05/26/2024 COMP. METAB OLIC PANEL (14) creatinine 1.00 mg/dL 0.76-1 .27 Not Available [facility] ([facility]) [address] [facility], [place], [address], 05/28/2024 03:36:42 05/25/20 24 05/26/2024 COMP. METAB OLIC PANEL (14) eGFR 95 mL/mi n/1.7 3 >59 Not Available [facility] ([facility]) [address] [facility], [place], [address], 05/28/2024 03:36:42 05/25/20 24 05/26/2024 COMP. METAB OLIC PANEL (14) BUN/creatini ne ratio 17 - Not Available [facility] ([facility]) [address] [facility], [place], [address], 05/28/2024 03:36:42 05/25/20 24 05/26/2024 COMP. METAB OLIC PANEL (14) sodium 139 mmol/ L 134-14 4 Not Available [facility] ([facility]) [address] [place], [address], 05/28/2024 03:36:42 05/25/20 24 05/26/2024 COMP. METAB OLIC PANEL (14) potassium 4.5 mmol/ L 3.5-5. 2 Not Available [facility] ([facility]) [address] [facility], [place], [address], 05/28/2024 03:36:42 05/25/20 24 05/26/2024 COMP. METAB OLIC PANEL (14) chloride 100 mmol/ L 96-106 Not Available [facility] ([facility]) [address] [facility], [place], [address], 05/28/2024 03:36:42 05/25/20 24 05/26/2024 COMP. METAB OLIC PANEL (14) carbon dioxide, total 25 mmol/ L 20-29 Not Available [facility] ([facility]) [address] [facility], [place], [address], 05/28/2024 03:36:42 05/25/20 24 05/26/2024 COMP. METAB OLIC PANEL (14) calcium 10.0 mg/dL 8.7-10 .2 Not Available [facility] ([facility]) [address] [facility], [place], [address], 05/28/2024 03:36:42 05/25/20 24 05/26/2024 COMP. METAB OLIC PANEL (14) protein, total 7.2 g/dL 6.0-8. 5 Not Available [facility] ([facility]) [address] [facility], [place], [address], 05/28/2024 03:36:42 05/25/20 24 05/26/2024 COMP. METAB OLIC PANEL (14) albumin 5.0 g/dL 4.1-5. 1 Not Available [facility] ([facility]) [address] [facility], [place], [address], 05/28/2024 03:36:42 05/25/20 24 05/26/2024 COMP. METAB OLIC PANEL (14) globulin, total 2.2 g/dL 1.5-4. 5 Not Available [facility] ([facility]) [address] [facility], [place], [address], 05/28/2024 03:36:42 05/25/20 24 05/26/2024 COMP. METAB OLIC PANEL (14) bilirubin, total 0.7 mg/dL 0.0-1. 2 Not Available [facility] ([facility]) [address] [facility] [place], [address], 05/28/2024 03:36:42 05/25/20 24 05/26/2024 COMP. METAB OLIC PANEL (14) alkaline phosphatase 65 IU/L 44-121 Not Available [facility] ([facility]) [address] [facility], [place], [address], 05/28/2024 03:36:42 05/25/20 24 05/26/2024 COMP. METAB OLIC PANEL (14) AST (SGOT) 25 IU/L 0-40 Not Available [facility] ([facility]) [address] [facility], [place], [address], 05/28/2024 03:36:42 05/25/20 24 05/26/2024 COMP. METAB OLIC PANEL (14) ALT (SGPT) 25 IU/L 0-44 Not Available [facility] ([facility]) [address] [facility] [place], [address], 05/28/2024 03:36:42 05/25/20 24 05/26/2024 HEMOG LOBIN A1C hemoglobin A1C 5.5 % 4.8-5. 6 Predi abete s: 5.7 - 6.4 Diabe jn: >6.4 Glyce jessica contr ol for adult s with diabe jn: <7.0 Not Available [facility] ([facility]) [address] [facility], [place], [address], 05/28/2024 03:36:43 05/25/20 24 05/26/2024 CBC WITH DIFFE RENTI AL/PL ATELE T WBC 6.7 x10e3 /uL 3.4-10 .8 Not Available [facility] ([facility]) [address] [facility], [place], [address], 05/28/2024 03:36:43 05/25/20 24 05/26/2024 CBC WITH DIFFE RENTI AL/PL ATELE T RBC 4.46 x10e6 /uL 4.14-5 .80 Not Available [facility] ([facility]) [address] [facility], [place], [address], 05/28/2024 03:36:43 05/25/20 24 05/26/2024 CBC WITH DIFFE RENTI AL/PL ATELE T hemoglobin 14.8 g/dL 13.0-1 7.7 Not Available [facility] ([facility]) [address] [facility], [place], [address], 05/28/2024 03:36:43 05/25/20 24 05/26/2024 CBC WITH DIFFE RENTI AL/PL ATELE T hematocrit 43.4 % 37.5-5 1.0 Not Available [facility] ([facility]) [address] [facility], [place], [address], 05/28/2024 03:36:43 05/25/20 24 05/26/2024 CBC WITH DIFFE RENTI AL/PL ATELE T MCV 97 fL 79-97 Not Available [facility] ([facility]) [address] [place], [address], 05/28/2024 03:36:43 05/25/20 24 05/26/2024 CBC WITH DIFFE RENTI AL/PL ATELE T MCH 33.2 pg 26.6-3 3.0 above high normal Not Available [facility] ([facility]) [address] [place], [address], 05/28/2024 03:36:43 05/25/20 24 05/26/2024 CBC WITH DIFFE RENTI AL/PL ATELE T MCHC 34.1 g/dL 31.5-3 5.7 Not Available [facility] ([facility]) [address] [place], [address], 05/28/2024 03:36:43 05/25/20 24 05/26/2024 CBC WITH DIFFE RENTI AL/PL ATELE T RDW 12.7 % 11.6-1 5.4 Not Available [facility] ([facility]) [address] [place], [address], 05/28/2024 03:36:43 05/25/20 24 05/26/2024 CBC WITH DIFFE RENTI AL/PL ATELE T platelets 243 x10e3 /uL 150-45 0 Not Available [facility] ([facility]) [address] [facility], [place], [address], 05/28/2024 03:36:43 05/25/20 24 05/26/2024 CBC WITH DIFFE RENTI AL/PL ATELE T neutrophils 41 % notest ab. Not Available [facility] ([facility]) [address] [facility], [place], [address], 05/28/2024 03:36:43 05/25/20 24 05/26/2024 CBC WITH DIFFE RENTI AL/PL ATELE T lymphs 40 % notest ab. Not Available [facility] ([facility]) [address] [facility], [place], [address], 05/28/2024 03:36:43 05/25/20 24 05/26/2024 CBC WITH DIFFE RENTI AL/PL ATELE T monocytes 14 % notest ab. Not Available [facility] ([facility]) [address] [facility], [place], [address], 05/28/2024 03:36:43 05/25/20 24 05/26/2024 CBC WITH DIFFE RENTI AL/PL ATELE T eos 3 % notest ab. Not Available [facility] ([facility]) [address] [facility], [place], [address], 05/28/2024 03:36:43 05/25/20 24 05/26/2024 CBC WITH DIFFE RENTI AL/PL ATELE T basos 1 % notest ab. Not Available [facility] ([facility]) [address] [facility], [place], [address], 05/28/2024 03:36:43 05/25/20 24 05/26/2024 CBC WITH DIFFE RENTI AL/PL ATELE T neutrophils (absolute) 2.8 x10e3 /uL 1.4-7. 0 Not Available [facility] ([facility]) [address] [facility], [place], [address], 05/28/2024 03:36:43 05/25/20 24 05/26/2024 CBC WITH DIFFE RENTI AL/PL ATELE T lymphs (absolute) 2.7 x10e3 /uL 0.7-3. 1 Not Available [facility] ([facility]) [address] [facility], [place], [address], 05/28/2024 03:36:43 05/25/20 24 05/26/2024 CBC WITH DIFFE RENTI AL/PL ATELE T monocytes(ab solute) 1.0 x10e3 /uL 0.1-0. 9 above high normal Not Available [facility] ([facility]) [address] [facility], [place], [address], 05/28/2024 03:36:43 05/25/20 24 05/26/2024 CBC WITH DIFFE RENTI AL/PL ATELE T eos (absolute) 0.2 x10e3 /uL 0.0-0. 4 Not Available [facility] ([facility]) [address] [facility], [place], [address], 05/28/2024 03:36:43 05/25/20 24 05/26/2024 CBC WITH DIFFE RENTI AL/PL ATELE T baso (absolute) 0.0 x10e3 /uL 0.0-0. 2 Not Available [facility] ([facility]) [address] [place], [address], 05/28/2024 03:36:43 05/25/20 24 05/26/2024 CBC WITH DIFFE RENTI AL/PL ATELE T immature granulocytes 1 % notest ab. Not Available [facility] ([facility]) [address] [facility], [place], [address], 05/28/2024 03:36:43 05/25/20 24 05/26/2024 CBC WITH DIFFE RENTI AL/PL ATELE T immature grans (abs) 0.0 x10e3 /uL 0.0-0. 1 Not Available [facility] ([facility]) [address] [facility], [place], [address], 05/28/2024 03:36:43 05/25/20 24 05/26/2024 PROST ATE-S PECIF IC AG prostate specific Ag 1.9 NG/mL 0.0-4. 0 Odilia ECLIA metho dolog y. Accor ding to the Ameri can Urolo gical Assoc iatio n, Serum PSA shoul d decre ase and remai n at undet ectab le level s after radic al prost atect padmini. The AUA defin es bioch emica l recur rence as an initi al PSA value 0.2 ng/mL or great er follo wed by a subse quent confi rmato ry PSA value 0.2 ng/mL or great er. Value s obtai jane with diffe rent assay metho ds or kits canno t be used inter myrick eably . Resul ts canno t be inter prete d as absol picayune evide nce of the prese nce or absen ce of mallory lui se. Not Available [facility] ([facility]) [address] [facility], [place], [address], 05/28/2024 03:36:43 04/28/20 24 04/28/2024 XR, finge r(s) No observ ation record ed. [email or web address] [place] [id number] [facility] [address], [place], [address], 04/28/2024 23:01:30 11/30/19 25 02/11/2024 home sleep testi ng (PROC ) No observ ation record ed. BARCODE Not Available 2024 15:38:08 Result Notes None recorded. Problems Name Problem SNOMED Code Status Onset Date Resolution Date Notes Provider Name and Address Organization Details Recorded Time Generalized anxiety disorder 43959172 Active 2023 JOSEPHINE Junior Attn: Ingridin g,[address] [facility], [place], [address], [place] - [facility] 4 14:00:42 Hyperlipidemia 73772711 Active 2023 JOSEPHINE Junior Attn: Royal marie,[address] [facility], [place], [address], [place] [facility] 4 14:00:44 Obstructive sleep apnea syndrome 35078973 Active 2023 JOSEPHINE Junior Attn: Royal marie,[address] [facility], [place], [address], [place] [facility] 4 14:00:45 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 Procedures Surgical History Date Name Laterality Status Provider Name and Address Organization Details Recorded Time Eye Surgery completed Hermelindo bennett [place] [facility] 03/23/2024 11:31:59 Imaging Results Imaging Date Name Status LastModified by Organiz [facility] Details LastModified Time 04/28/2024 XR, finger(s) completed [email or web address] [place] [id number] [facility] , [place], [address], 04/28/2024 23:01:30 02/11/2024 home sleep testing (PROC) completed BARCODE Information not available 11/30/2024 15:38:08 Procedure Notes None recorded. Medical Equipment None Reported. Allergies No known drug allergies Medications Name Sig Start Date Stop Date Status Note LastModified by Organization Details LastModified Time atorvastatin 20 mg tablet TAKE 1 TABLET BY MOUTH EVERY NIGHT AT BEDTIME 2023 active Not Available Not Available Not Avai lable valacyclovir 1 gram tablet TAKE 2 TABLETS BY MOUTH EVERY 12 HOURS NEEDED FOR 1 DAY 2024 active Not Available Not Available Not Avai lable prednisone 20 mg tablet TAKE 2 TABLETS BY MOUTH EVERY DAY FOR 5 DAYS 03/21 completed Not Available Not Available Not Available cephalexin 500 mg capsule TAKE 1 CAPSULE BY MOUTH EVERY 6 HOURS FOR 10 DAYS 06/21 completed Not Available Not Available Not Available amoxicillin 875 mg-potassium clavulanate 125 mg tablet TAKE 1 TABLET BY MOUTH EVERY 12 HOURS 03/21 completed Not Available Not Available Not Available escitalopram 10 mg tablet Take 1 tablet every day by oral route. active Not Available Not Available No t Available mirtazapine 7.5 mg tablet Take 1 tablet every day by oral route. active Not Available Not Available No t Available Vitals Date Recorded Body height Respiratory rate Oxygen saturation Oxygen saturation in Arterial blood by Pulse oximetry Heart rate Body mass index (BMI) Body weight Provider Name and Address Organization Details Last Updated DateTime 4 177.8 cm 20 /min 99 % 99 % 81 /min 28.3 kg/m2 44332.7 g Hermelindo Franklin MA [facility] 10:59:52 Date Recorded Systolic blood pressure Diastolic blood pressure Provider Name and Address Organization Details Last Updated DateTime 03/23/2024 110 mm[Hg] 80 mm[Hg] JOSEPHINE Junior Attn: Accounting,[address] [place], [address], [facility] 03/23/2024 11:16:14 Date Recorded Body height Body mass index (BMI) Body weight Respiratory rate Oxygen saturation Oxygen saturation in Arterial blood by Pulse oximetry Heart rate Systolic blood pressure Diastolic blood pressure Provider Name and Address Organization Details Last Updated DateTime 4 177.8 cm 28.6 kg/m2 71627.8 8 g 16 /min 98 % 98 % 68 /min 142 mm[Hg] 82 mm[Hg] Kimmie Banegas [facility] 4 12:32:48 Date Recorded Systolic blood pressure Diastolic blood pressure Provider Name and Address Organization Details Last Updated DateTime 06/21/2024 130 mm[Hg] 80 mm[Hg] JOSEPHINE Junior Attn: Accounting,[address] [facility], [place], [address], [facility] 06/21/2024 13:02:55 Social History Question Answer Notes LastModified by Organizat ion Details LastModified Time Tobacco Smoking Status Never Smoker ARMANDO Nation, [facility] 03/23/2024 10:58:42 What Is Your Level Of Alcohol Consumption? Occasional Information not available 03/23/2024 Are You Blind Or Do You Have Difficulty Seeing? No Information n ot available 03/23/2024 What Is Your Level Of Caffeine Consumption? Occasional Information not available 03/23/2024 In The 14 Days Before Symptom Onset, Have You Had Close Contact With A Laboratory-confirm ed COVID-19 While That Case Was Ill? No Information n ot available 03/23/2024 In The 14 Days Before Symptom Onset, Have You Had Close Contact With A Person Who Is Under Investigation For COVID-19 While That Person Was Ill? No Information not available 03/23/2024 Have You Been To An Area Known To Be High Risk For COVID-19? No Information not available 03/23/2024 Are You Currently Employed? Yes Information not available 03/23/2024 Are You Deaf Or Do You Have Serious Difficulty Hearing? No Information not available 03/23/2024 What Type Of Diet Are You Following? REGULAR Information n ot available 03/23/2024 Are There Any Guns Present In Your Home? No Information not available 03/23/2024 What Was The Date Of Your Most Recent Tobacco Screening? 03/23/2024 Information not available 03/23/2024 Do You Use Your Seat Belt Or Car Seat Routinely? Yes Information not available 03/23/2024 Do You Have Smoke And Carbon Monoxide Detectors In Your Home? Yes Information not available 03/23/2024 Do You Use Any Illicit Or Recreational Drugs? No Information not available 03/23/2024 Do You Use Sunscreen Routinely? Yes Information not available 03/23/2024 Has Tobacco Cessation Counseling Been Provided? Yes Information not available 03/23/2024 On What Date Was Tobacco Cessation Counseling Provided? 03/23/2024 Information not available 03/23/2024 Do You Or Have You Ever Used Any Other Forms Of Tobacco Or Nicotine? No Information not available 03/23/2024 Sex: Male Functional Status Question Answer Note LastModified by Organizat ion Details LastModified Time Are you able to care for yourself? Yes Information not available 03/23/2024 What is your exercise level? Occasional Information not available 03/23/2024 Mental Status None recorded. Family History Relationship Description Onset Age of this Age Resolved Age Notes LastModified by Organization Details LastModified Time Mother Hypercholest erolemia [email or web address] Not available 2023 11:31:24 Father Malignant tumor of prostate [email or web address] Not available 2023 11:31:32 Medical History Condition Response Coronary Artery Disease N Other N Atrial Fibrillation N High Blood Pressure N Thyroid Problems N Kidney or Bladder Problems N GI Problems N Depression N COPD N Blood Clots N Skin Problems N Anemia N Heart Attack (CT) N Diabetes N Anxiety Disorder Y Muscle, Joint, or Bone Problems N Seizures/Epilepsy N Acid Reflux (GERD) N Cancer N Stroke N Asthma N Allergies N High Cholesterol Y Hepatitis N Liver Disease N Headaches N Osteoporosis N Heart Failure N Past Encounters Encounter ID Performer Location Encounter Start Date Encounter Closed Date Diagnosis/Indication Diagnosis SNOMED-CT Code Diagnosis ICD10 Code Diagnosis Note [id number] JOSEPHINE Junior [facility]ly [facility] - [facility] [address] [place] [address] 03/23/2024 10:38:09 03/23/2024 14:28:05 Generalized anxiety disorder 87038368 F41.1 stable on lexapro 10mg daily. Hyperlipidemia 93031602 E78.5 stable on atorvastat in 20mg daily. fasting lipids are due. Long-term drug therapy 433459029 Z79.899 routine CBC, CMP and TFTs due. Adult heal th examination 002943249 Z00.01 annual wellness completed Screening for malignant neoplasm of prostate 066560179 Z12.5 screening annual PSA due. Diabetes m ellitus screening 190357889 Z13.1 a1c screening due. Endocrine/ metabolic screening 691253020 Z13.228 screening testostero ne labs ordered. Amygdalolith 8894553 J35 .8 refer to ENT for evaluation . Obstructiv e sleep apnea syndrome 43147496 G47.33 pt to get me copy of sleep study from Dentist office. [id number] JOSEPHINE Junior [facility] [place] [address] [place] [address] 06/21/2024 12:20:21 06/21/2024 13:34:49 Body mass index 25-29 - overweight 943383791 Z68.28 BMI is 28.6 Obstructiv e sleep apnea syndrome 81458468 G47.33 Refer for a formal home sleep study that has been evaluated by sleep medicine locally. We will re-evaluat e for an updated test to get accurate AHI. Screening for malignant neoplasm of colon 473025259 Z12.11 Patient is due for baseline screening colonoscop y at age 43 Generalize d anxiety disorder 42886772 F41.1 stable on lexapro 10mg daily. Refill given Chronic insomnia 6438277 04 F51.04 Refill needed on mirtazapin e 7.5 mg q.h.s. Health Concerns Section Related Observation LastModified by Organization Detai ls LastModified Time None Recorded Concern Status LastModified by Organization Details LastModified Time None Recorded Advance Directives Directive None Recorded Payers Encounter Date Sequence Insurance Name Policy Number Policy Au Covered Member ID Au Member ID Guarantor Name 03/23/[address] [place] [address] [id number] Octavio Fulton [id number] Octavio Fulton 06/21/[address] [place] [address] [id number] Octavio Fulton [id number] Octavio Fulton Notes Date Note Type Note Provider Name and Address Organization Details Recorded Time 03/23/2024 text/html Anxiety/Depressi onRep orted bypatient.Notes:pt is taking lexapro 10mg daily and feeling very stable with his anxiety. no c/o.HyperlipidemiaRep orted bypatient.Notes:pt is stable on atorvastatin 20mg daily. due for labsObstructive Sleep Apnea F/UReported bypatient.Notes:pt has sleep study completed from dentist and shows sleep apnea. JOSEPHINE Junior Attn: [address] [place], [address], [facility] 04/11/2024 14:06:21 06/21/2024 text/html Anxiety/Depressi onRep orted bypatient.Notes:pt is taking lexapro 10mg daily and feeling very stable with his anxiety. no c/o.HyperlipidemiaRep orted bypatient.Notes:pt is stable on atorvastatin 20mg daily.Obstructive Sleep Apnea F/UReported bypatient.Quality:no gasping for air; no witnessed apnea; no hyponasal speech; no frequent breathing through the mouth;loud snoring Onset/Timing:new onset Duration:continuous; Went to the dentist and they did a test and told him he had apnea Severity:does not limit daily activities; no frequent sore throats resulting in excess missed days from school / work per year; no difficulty getting going in the morning; no awakening in the middle of the night with sore throat Location:no enlarged tonsils; no throat pain; no feeling of tightness in throat; no dryness of mouth; no chest congestion;nasal passage blockage Context:no lack of adequate sleep; no shift work; not currently taking medication to help sleep; no recent weight gain; no recent upper respiratory infection; no recent sick contacts; not worse with environmental exposure; not worse with seasonal allergen exposure; no hypertension; normal sleep hours Aggravating factors:not worse during an upper respiratory infection (a cold); not worse when allergies are active Associated Symptoms:no morning headache; no awakening at night short of breath; no sweating heavily at night; no excessive sleepiness during the day; no suddenly falling asleep during the day; no napping; no impaired work performace; no nasal congestionNotes:Prior sleep study that was ordered from the dentist does so some signs of sleep apnea but this needs further evaluated. JOSEPHINE Junior Attn: [address] [facility], [place], [address], [facility] 07/01/2024 17:18:40
--- OUTSIDE RECORDS SUMMARY | 2024-12-28 01:15 | XMS_ITS | Clinical Summary ---
Author Organization [facility] Address [address] [place] [address] Phone Care Team Providers Care Culinary Worker Name Role Phone Unavailable Unavailable Unavailable Reason for Visit and Chief Complaint * PHONE CALL Problems Includes: Problems addressed during this encounter and other active Problems All Visits Onset Date Resolved Date Provider Condition S tatus Secondary Insomnia 09/15/2018 SHAWNEE CANDELARIA D.O. Active Last Documented On 8 11:32AM ; [facility] Hypercholesterolemia 05/23/2017 SHAWNEE Waters D.O. Active Last Documented On 8 3:32PM ; [facility] Anxiety Disorder Nos 01/14/2017 SHAWNEE Waters D.O. Active Last Documented On 7 11:06AM ; [facility] Plan of Treatment No Plan of Treatment [...] On 01/31/2020 10:43AM By MIKE LOAIZA ; [facility] Mirtazapine 7.5MG Oral Tablet 12/04/2018 Provider: Diagnosis: Wendy Cramer Last Documented On 9 3:33PM By AME LOAIZA ; [facility] Medications Administered Includes: Administered Medications from this encounter No Administered Medications Recorded Results Includes: Results discussed during this encounter No Results Recorded For Specified Dates History of Present Illness Includes: History of Present Illness from this encounter No History of Present Illness Recorded Social History Description Last Updated Smoking status : Never smoker 03/08/2015 Last Documented On 9 3:09PM ; [facility] Abnormal diet HEALTHY 01/18/2013 Last Documented On 9 3:09PM ; [facility] Alcohol 6 BEERS PER WEEK 01/18/2013 Last Documented On 9 3:09PM ; [facility] Exercise frequency 4 TIMES PER WEEK 01/08 Last Documented On 9 3:09PM ; [facility] No tobacco use 01/18/2013 Last Documented On 9 3:09PM ; [facility] Non-smoker 01/18/2013 Last Documented On 9 3:09PM ; [facility] Not using drugs 01/18/2013 Last Documented On 9 3:09PM ; [facility] Occupation [employer] 01/18/2013 Last Documented On 9 3:09PM ; [facility] Single 01/18/2013 Last Documented On 9 3:09PM ; [facility] Medical History Includes: Medical History addressed during this encounter Description Last Updated History of hyperlipidemia 06/06/2018 Last Documented On 9 3:09PM ; [facility] Past medical/surgical history [use for f ree text] 06/06/2018 Last Documented On 9 3:09PM ; [facility] Family History Includes: Family History addressed during this encounter Description Last Updated Family history reviewed - unchanged [facility] last visit 12/06/2016 Last Documented On 9 3:09PM ; [facility] Maternal history of hyperlipidemia 06/05 Last Documented On 9 3:09PM ; [facility] Paternal history of cancer 06/05/2016 Last Documented On 9 3:09PM ; [facility] Maternal grandfather's history of jerez ry artery disease IN 40'S OR 50'S 03/08/2015 Last Documented On 9 3:09PM ; [facility] Maternal grandfather is LUNG CA NCER- ASBESTOS 04/27/2009 Last Documented On 9 3:09PM ; [facility] Maternal grandmother is PANCREA TIC AND COLON CANCER 04/27/2009 Last Documented On 9 3:09PM ; [facility] Mother LOW BLOOD PRESSURE 04/27/2009 Last Documented On 9 3:09PM ; [facility] Paternal grandmother is TERMINA L BRONCHITIS 04/27/2009 Last Documented On 9 3:09PM ; [facility] Paternal grandfather is not HEA RT FAILURE 04/27/2009 Last Documented On 9 3:09PM ; [facility] Review of Systems Includes: Review of Systems [...] Location Date Check-In Time Check-Out Time Diagnosis * PHONE CALL ANALY GARIBAY DO 08/20/2019 3:09PM 11:59PM Clinical Notes Includes: Clinical Notes from this encounter No Clinical Notes Recorded
[2024-12-28 08:57] VITALS: BP 137/99; PULSE 77; RESP 16; TEMP 35.9; O2SAT 100; BMI 29.2
[2024-12-28] MEDS: LACTATED RINGERS 1,000 ML 150 ML IV CONT (09:06)
--- NOTE | 2024-12-28 09:08 | P.PNAN_ITS ---
Anes - Initial Pre Proc Eval Procedure: Operation Date: 12/28/24 10:00 Proposed Procedures p Screening Colonoscopy - Jesus Schultz MD Date/Time: 12/28/24 09:08 Surgeon: Jesus Schultz MD Pre Op Diagnosis: neoplasm screening Patient Data Age: 44 Gender: M Height: 1.78 m Weight: 92.4 kg Last Vital Signs Temp 96.7 F L 12/28/24 08:57 Pulse 77 12/28/24 08:57 Resp 16 12/28/24 08:57 BP 137/99 H 12/28/24 08:57 Pulse Ox 100 12/28/24 08:57 O2 Del Method Room Air 12/28/24 08:57 Allergies Allergy/AdvReac Type Severity Reaction Status Date / Time No Known Allergies Allergy Verified 12/28/24 08:56 Home Medications ?Medication ?Instructions ?Recorded ?Confirmed ?Type escitalopram oxalate 10 mg tablet 10 mg PO DAILY 04/28/24 12/28/24 History valacyclovir 1 gram tablet 1,000 mg PO DAILY PRN fever 04/28/24 12/28/24 History blisters omeprazole 40 mg capsule,delayed 40 mg PO DAILY #30 caps 05/18/24 12/28/24 Rx release atorvastatin 20 mg tablet 20 mg PO DAILY 12/13/24 12/28/24 History mirtazapine 7.5 mg tablet 3 mg PO DAILY 12/13/24 12/28/24 History Results Review: All pre-operative results and documents have been reviewed as part of the pre- operative evaluation. [facility] Past Medical History Medical History MELISSA (obstructive sleep apnea) Hyperlipidemia Surgical History Surgical History No pertinent past surgical history Family History Family History Mother Family history non-contributory Social History Social History Smoking status: Never smoker Alcohol intake: current Drinks per week: 10 Substance use: never Substance use type: does not use Living arrangements: with family Gender identity (if verbalized by the patient): Male Sexual Orientation (if Verbalized by the Patient): Straight or Heterosexual Spiritual care concerns: No Anes - Eval Final PreProcedure Day of Procedure 12/28/24 09:08 Patient weight: overweight Lungs: normal air movement Airway: Mallampati scale Results Review: All pre-operative results and documents have been reviewed as part of the pre- operative evaluation. Informed Consent: The patient's anesthetic plan and its attendant risks and benefits were discussed with the patient/family/POA. Questions were solicited and answers provided to the satisfaction of the patient/family/POA.
--- NOTE | 2024-12-28 09:09 | WPDANESEPPF ---
Anes - Initial Pre Proc Eval Procedure: Operation Date: 12/28/24 10:00 Proposed Procedures p Screening Colonoscopy - Jesus Schultz MD Date/Time: 12/28/24 09:09 Surgeon: Jesus Schultz MD Pre Op Diagnosis: neoplasm screening Patient Data Age: 44 Gender: M Height: 1.78 m Weight: 92.4 kg Last Vital Signs Temp 35.9 C L 12/28/24 08:57 Pulse 77 12/28/24 08:57 Resp 16 12/28/24 08:57 BP 137/99 H 12/28/24 08:57 Pulse Ox 100 12/28/24 08:57 O2 Del Method Room Air 12/28/24 08:57 Allergies Allergy/AdvReac Type Severity Reaction Status Date / Time No Known Allergies Allergy Verified 12/28/24 08:56 Home Medications ?Medication ?Instructions ?Recorded ?Confirmed ?Type escitalopram oxalate 10 mg tablet 10 mg PO DAILY 04/28/24 12/28/24 History valacyclovir 1 gram tablet 1,000 mg PO DAILY PRN fever 04/28/24 12/28/24 History blisters omeprazole 40 mg capsule,delayed 40 mg PO DAILY #30 caps 05/18/24 12/28/24 Rx release atorvastatin 20 mg tablet 20 mg PO DAILY 12/13/24 12/28/24 History mirtazapine 7.5 mg tablet 3 mg PO DAILY 12/13/24 12/28/24 History Patient hx anesthesia problems: none Family hx anesthesia problems: none Results Review: All pre-operative results and documents have been reviewed as part of the pre-operative evaluation. [facility] Past Medical History Medical History (Updated 12/27/24 @ 15:27 by Gurinder Callahan DO) MELISSA (obstructive sleep apnea) Hyperlipidemia Surgical History Surgical History No pertinent past surgical history Family History Family History Mother Family history non-contributory Social History Social History Smoking status: Never smoker Alcohol intake: current Drinks per week: 10 Substance use: never Substance use type: does not use Living arrangements: with family Gender identity (if verbalized by the patient): Male Sexual Orientation (if Verbalized by the Patient): Straight or Heterosexual Spiritual care concerns: No Anes - Eval Final PreProcedure Day of Procedure 12/28/24 09:09 Patient weight: overweight Heart: regular rate and rhythm Lungs: clear to auscultation Airway: Mallampati scale class II Neurological: alert and oriented Last oral intake: >/= 8 hours ASA classification: III Emergent: no Anesthetic plan: proceed Anesthesia type and monitoring: general GIVS and standard monitoring Results Review: All pre-operative results and documents have been reviewed as part of the pre-operative evaluation. Informed Consent: The patient's anesthetic plan and its attendant risks and benefits were discussed with the patient/family/POA. Questions were solicited and answers provided to the satisfaction of the patient/family/POA.
--- NOTE | 2024-12-28 09:33 | PM.HPGS ---
History of Present Illness History of Present Illness Consent: Risks, benefits, and alternatives have been discussed and questions answered. Patient agrees to proceed with procedure. Chief complaint: neoplasm screening Narrative: Octavio Fulton is a 44 year old male here for first screening colonoscopy Review of Systems Review of Systems: All systems reviewed & are unremarkable except as noted in HPI and below PMFSH Past Medical History Medical History (Updated 12/28/24 @ 09:34 by Jesus Schultz MD) Colon cancer screening MELISSA (obstructive sleep apnea) Hyperlipidemia Surgical History Surgical History No pertinent past surgical history Family History Family History Mother Family history non-contributory Social History Social History Smoking status: Never smoker Alcohol intake: current Drinks per week: 10 Substance use: never Substance use type: does not use Living arrangements: with family Gender identity (if verbalized by the patient): Male Sexual Orientation (if Verbalized by the Patient): Straight or Heterosexual Spiritual care concerns: No Meds Home Medications and Allergies Home Medications ?Medication ?Instructions ?Recorded ?Confirmed ?Type escitalopram oxalate 10 mg tablet 10 mg PO DAILY 04/28/24 12/28/24 History valacyclovir 1 gram tablet 1,000 mg PO DAILY PRN fever 04/28/24 12/28/24 History blisters omeprazole 40 mg capsule,delayed 40 mg PO DAILY #30 caps 05/18/24 12/28/24 Rx release atorvastatin 20 mg tablet 20 mg PO DAILY 12/13/24 12/28/24 History mirtazapine 7.5 mg tablet 3 mg PO DAILY 12/13/24 12/28/24 History Allergies Allergy/AdvReac Type Severity Reaction Status Date / Time No Known Allergies Allergy Verified 12/28/24 08:56 Vital Signs Vital Signs - 24 hr 12/28/24 08:57 Temperature 96.7 F L Pulse Rate 77 Respiratory Rate 16 Blood Pressure 137/99 H Pulse Oximetry 100 Oxygen Delivery Room Air Exam Const: General: comfortable and no acute distress HENMT: Face/Nose/Sinus: Normal nares present Eyes: General: appearance normal, both eyes and all related structures Neck: Neck: no JVD Resp: Auscultation: clear to auscultation bilaterally Cardio: Rate: regular rate Rhythm: regular rhythm GI: Inspection: non-distended GI Palp: Yes Soft to palpation Skin: General skin exam: normal color Neuro: General: gait normal Speech: normal speech Extrem: General: normal to inspection Psych: Mental Status: mental status grossly normal Assessment and Plan Assessment and plan (1) Colon cancer screening: Code(s): Z12.11 - Encounter for screening for malignant neoplasm of colon Status: Acute Assessment and Plan: colonoscopy
[2024-12-28 09:53] VITALS: BP 102/67; PULSE 78; RESP 13; O2SAT 96
[2024-12-28 10:03] VITALS: BP 114/80; PULSE 66; RESP 16; O2SAT 97
[2024-12-28 10:13] VITALS: BP 122/91; PULSE 68; RESP 18; O2SAT 100
== END 2024-12-28 10:28 | disposition home or self-care (01) ==
PROVIDERS: PCP Physician Assistant; Visit Provider Internal Medicine Gastroenterology
PROC: 0DJD8ZZ Inspection of Lower Intestinal Tract, Via Natural or Artificial Opening Endoscopic (ICD-10-PCS; CPT 45378; principal; 2024-12-28 10:00)
DX: Z12.11 Encounter for screening for malignant neoplasm of colon (principal); D12.3 Benign neoplasm of transverse colon; D12.2 Benign neoplasm of ascending colon; E78.5 Hyperlipidemia, unspecified; G47.33 Obstructive sleep apnea (adult) (pediatric)
CPT/HCPCS: 45380; 45385; 88305; J2003; J2704; J7120